=== PATIENT | female | born 1990 | race Hispanic/Latino ===

== ENCOUNTER 2018-02-16 11:07 | Emergency (ER) | payer SELFPAY ==
[2018-02-16 11:18] VITALS: BP 129/76; PULSE 97; RESP 18; TEMP 36.9; O2SAT 95; BMI 18.8
--- NOTE | 2018-02-16 12:55 | ED.EXTPRO ---
HPI - Extremity Problem <Gillian Martinez PA-C - Last Filed: 02/16/18 21:54> General Chief complaint: Extremity Problem,Nontraumatic Stated complaint: 'MESSED UP MY SHOULDER CAN'T FUNCTION' Time Seen by Provider: 02/16/18 12:50 Source: patient Mode of arrival: ambulatory Limitations: no limitations History of Present Illness HPI Narrative: This 27-year-old female comes in today due to persistent right shoulder pain for several months. She states ?I am in excruciating pain? tearfully, and states that she can't move due to the pain which will not go away. She states that she just woke up with this pain 1 day without any specific trauma. 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 She states the pain starts around the top of her shoulder and neck area and radiates at times down into her arm which she describes as ?shocky ?type of pain. She states that it does not affect her pinky finger, she does not know which other fingers. She thinks that it is pain that keeps her from activity rather than weakness. She initially denies any exacerbating or alleviating features but states that later it is worse with movement. She states that she has seen a chiropractor for this including yesterday, but she does not know what the diagnosis is. She was told that she might have herniated disc. She was treated yesterday states this did not help pain. She has tried lidocaine and heat patches at home without help. She has tried occasional ibuprofen without help. She states that the pain is giving her some headache. She denies any other chronic medical history. Denies any possibility of , has implant in her arm Related Data Home Medications Medication Instructions Recorded Confirmed ibuprofen 600 mg PO TID PRN 10/06/17 10/06/17 loratadine [Claritin] 10 mg PO DAILY 10/06/17 10/06/17 Previous Rx's Medication Instructions Recorded nitrofurantoin monohyd/m-cryst 100 mg PO BID #10 cap 07/01/17 [Macrobid] cyclobenzaprine 10 mg PO TID PRN #20 tab 02/16/18 ibuprofen 800 mg PO Q8H PRN #30 tab 02/16/18 Allergies Allergy/AdvReac Type Severity Reaction Status Date / Time naproxen [NAPROXEN] Allergy Severe SWELL UP Verified 02/16/18 11:24 SHORT OF BREATH, TORADOL TOLERATED IN PAST PER equipment mechanic of Systems <RAPHAEL Burnham Last Filed: 02/16/18 21:54> Review of Systems All systems reviewed & are unremarkable except as noted in HPI and below Exam <RAPHAEL Burnham Last Filed: 02/16/18 21:54> Narrative Exam Narrative: GENERAL APPEARANCE: Patient lying tearfully, holding her right upper extremity PULMONARY: Lungs clear to auscultation bilaterally CV: Regular rhythm regular without murmur, normal S1 and S2, no S3 or S4 MUSCULOSKELETAL: No point tenderness over the cervical or thoracic spine. Tender over the right inferior cervical musculature and superior trapezius insertions, none on the left. Will not attempt C-spine or right shoulder ROM secondary to tenderness, but does move the neck on observation. She has normal range of motion of the right elbow, wrist, and hand with plant production manager strength 5/5 bilaterally. Following medications on repeat exam she is able to externally rotate the shoulder fully and abduct to 90? NEUROVASCULAR: Right hand is warm and pink with brisk cap refill, sensation grossly intact Initial Vital Signs Initial Vital Signs: Vital Signs Temperature 98.4 F 02/16/18 11:18 Pulse Rate 97 H 02/16/18 11:18 Respiratory Rate 18 02/16/18 11:18 Blood Pressure 129/76 02/16/18 11:18 Pulse Oximetry 95 02/16/18 11:18 <Valeria Sanchez DO - Last Filed: 02/17/18 08:14> Initial Vital Signs Initial Vital Signs: Vital Signs Temperature 98.4 F 02/16/18 11:18 Pulse Rate 97 H 02/16/18 11:18 Respiratory Rate 18 02/16/18 11:18 Blood Pressure 129/76 02/16/18 11:18 Pulse Oximetry 95 02/16/18 11:18 Course <RAPHAEL Burnham Last Filed: 02/16/18 21:54> Additional Information: Patient is feeling significantly improved following medications. She feels like she will be able to sleep comfortably. She did reveal she has had some rotator cuff problems in the past. She does frequent lifting and repetitive motion at work. She is going to remain off work for this weekend as she was scheduled off the 1st part of next week anyway. Will try rest, medications, and follow up with her PCP to evaluate level of improvement and need for further workup or therapy Orders Ordered: Discontinued Medications Cyclobenzaprine HCl (Flexeril) 10 mg PO NOW ONE Stop: 02/16/18 13:10 Last Admin: 02/16/18 13:25 Dose: 10 mg Ibuprofen (Advil) 800 mg PO NOW ONE Stop: 02/16/18 13:10 Last Admin: 02/16/18 13:24 Dose: 800 mg Vital Signs - 8 hr 02/16/18 14:46 Pulse Rate 88 Blood Pressure [Left Arm] 120/71 Pulse Oximetry 97 <Valeria Sanchez DO - Last Filed: 02/17/18 08:14> Orders Ordered: Discontinued Medications Cyclobenzaprine HCl (Flexeril) 10 mg PO NOW ONE Stop: 02/16/18 13:10 Last Admin: 02/16/18 13:25 Dose: 10 mg Ibuprofen (Advil) 800 mg PO NOW ONE Stop: 02/16/18 13:10 Last Admin: 02/16/18 13:24 Dose: 800 mg Vital Signs - 8 hr 02/16/18 14:46 Pulse Rate 88 Blood Pressure [Left Arm] 120/71 Pulse Oximetry 97 MDM - Extremity (Nontraumatic) <Gillian Martinez PA-C - Last Filed: 02/16/18 21:54> Imaging Data shoulder: Radiologist's impression: View Report History [address] [address] XRay Report Signed Patient: Bethany Lopez MR#: [id number] : 1990 Acct:[id number] Age/Sex: 27 / F Date of Service: 02/16/18 Loc: ED Accession Number: [id number] Procedure: XR shoulder RT min 2V Ordering Provider: Gillian Martinez P.A-C PROCEDURE: XR SHOULDER RT MIN 2V INDICATIONS: pain TECHNIQUE: 3 views of the shoulder were acquired. COMPARISON: None. FINDINGS: Bones: No fractures or dislocations. No suspicious bony lesions. Visualized ribs appear intact. Soft tissues: No suspicious soft tissue calcifications. IMPRESSION: 1. No acute bony abnormality. Dictated by: Julio C Del Real M.D. on 02/16/2018 at 13:55 Approved by: Julio C Del Real M.D. on 02/16/2018 at 13:57 Discharge Plan Departure Patient Disposition: Home Clinical Impression: Right shoulder pain, Strain of cervical portion of right trapezius muscle Discharge Date/Time: 02/16/18 15:13 Interventions: ED Discharge Assessment Last Done: 02/16/18 15:09 Instructions: DI for Shoulder Pain Activity Restrictions/Additional Instructions: Since the medications have helped you today, you can continue them at home, but remember not to drive as it is clear that the muscle relaxant cyclobenzaprine makes you sleepy. This should help you at night. You can increase the dose to 2 tablets at nighttime if you need to. You should return if you have any acutely worsening symptoms. Otherwise, please call Dr. Crawley' office where you were seen previously and let them know that you were in the ED and need to follow up with another provider. Part of this could be a rotator cuff issue as you have had in the past. You do need to be reassessed and may need further testing depending upon your progress after you have had some time to rest and avoid repetitive stress on the area (please try to avoid repetitive lifting and activity with that arm). Return if you have acutely worsening symptoms in the interim. Prescriptions: New cyclobenzaprine 10 mg tablet 10 mg PO TID PRN (Reason: muscle spasm) Qty: 20 RF: 0 ibuprofen 800 mg tablet 800 mg PO Q8H PRN (Reason: pain) Qty: 30 RF: 0 No Action nitrofurantoin monohyd/m-cryst [Macrobid] 100 MG capsule 100 mg PO BID Qty: 10 RF: 0 ibuprofen 600 mg Tablet 600 mg PO TID PRN (Reason: Pain) RF: 0 loratadine [Claritin] 10 mg Tablet 10 mg PO DAILY RF: 0 Referrals: Ariana Crawley MD [Physician] - <Valeria Sanchez DO - Last Filed: 02/17/18 08:14> Cosign ED Attending Rasature Attestation: I was immediately available in the department for consultation. Documentation has been reviewed. I agree with assessment and plan.
--- NOTE | 2018-02-16 13:09 | DI.RAD.S_ITS ---
PROCEDURE: XR CERVICAL SPINE 2V OR 3V INDICATIONS: RIGHT radicular pain TECHNIQUE: 3 views of the cervical spine were acquired. COMPARISON: None. FINDINGS: Bones: No fractures or dislocations to the C7-T1 level. There is straightening of the cervical lordosis. The lateral masses of C1 appear intact on the odontoid view. No suspicious bony lesions. Soft tissues: No prevertebral soft tissue swelling. IMPRESSION: 1. No fracture or subluxation. Dictated by: Julio C Del Real M.D. on 02/16/2018 at 13:57 Approved by: Julio C Del Real M.D. on 02/16/2018 at 14:03
--- NOTE | 2018-02-16 13:09 | DI.RAD.S_ITS ---
PROCEDURE: XR SHOULDER RT MIN 2V INDICATIONS: pain TECHNIQUE: 3 views of the shoulder were acquired. COMPARISON: None. FINDINGS: Bones: No fractures or dislocations. No suspicious bony lesions. Visualized ribs appear intact. Soft tissues: No suspicious soft tissue calcifications. IMPRESSION: 1. No acute bony abnormality. Dictated by: Julio C Del Real M.D. on 02/16/2018 at 13:55 Approved by: Julio C Del Real M.D. on 02/16/2018 at 13:57
--- NOTE | 2018-02-16 13:19 | ED_ITS ---
HPI - Extremity Problem <Gillian Martinez PA-C - Last Filed: 02/16/18 21:54> General Chief complaint: Extremity Problem,Nontraumatic Stated complaint: 'MESSED UP MY SHOULDER CAN'T FUNCTION' Time Seen by Provider: 02/16/18 12:50 Source: patient Mode of arrival: ambulatory Limitations: no limitations History of Present Illness HPI Narrative: This 27-year-old female comes in today due to persistent right shoulder pain for several months. She states ?I am in excruciating pain? tearfully, and states that she can't move due to the pain which will not go away. She states that she just woke up with this pain 1 day without any specific trauma. 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 She states the pain starts around the top of her shoulder and neck area and radiates at times down into her arm which she describes as ?shocky ?type of pain. She states that it does not affect her pinky finger, she does not know which other fingers. She thinks that it is pain that keeps her from activity rather than weakness. She initially denies any exacerbating or alleviating features but states that later it is worse with movement. She states that she has seen a chiropractor for this including yesterday, but she does not know what the diagnosis is. She was told that she might have herniated disc. She was treated yesterday states this did not help pain. She has tried lidocaine and heat patches at home without help. She has tried occasional ibuprofen without help. She states that the pain is giving her some headache. She denies any other chronic medical history. Denies any possibility of , has implant in her arm Related Data Home Medications Medication Instructions Recorded Confirmed ibuprofen 600 mg PO TID PRN 10/06/17 10/06/17 loratadine [Claritin] 10 mg PO DAILY 10/06/17 10/06/17 Previous Rx's Medication Instructions Recorded nitrofurantoin monohyd/m-cryst 100 mg PO BID #10 cap 07/01/17 [Macrobid] cyclobenzaprine 10 mg PO TID PRN #20 tab 02/16/18 ibuprofen 800 mg PO Q8H PRN #30 tab 02/16/18 Allergies Allergy/AdvReac Type Severity Reaction Status Date / Time naproxen [NAPROXEN] Allergy Severe SWELL UP Verified 02/16/18 11:24 SHORT OF BREATH, TORADOL TOLERATED IN PAST PER history card clerk of Systems <RAPHAEL Burnham Last Filed: 02/16/18 21:54> Review of Systems All systems reviewed & are unremarkable except as noted in HPI and below Exam <RAPHAEL Burnham Last Filed: 02/16/18 21:54> Narrative Exam Narrative: GENERAL APPEARANCE: Patient lying tearfully, holding her right upper extremity PULMONARY: Lungs clear to auscultation bilaterally CV: Regular rhythm regular without murmur, normal S1 and S2, no S3 or S4 MUSCULOSKELETAL: No point tenderness over the cervical or thoracic spine. Tender over the right inferior cervical musculature and superior trapezius insertions, none on the left. Will not attempt C-spine or right shoulder ROM secondary to tenderness, but does move the neck on observation. She has normal range of motion of the right elbow, wrist, and hand with marking stitcher strength 5/ 5 bilaterally. Following medications on repeat exam she is able to externally rotate the shoulder fully and abduct to 90? NEUROVASCULAR: Right hand is warm and pink with brisk cap refill, sensation grossly intact Initial Vital Signs Initial Vital Signs: Vital Signs Temperature 98.4 F 02/16/18 11:18 Pulse Rate 97 H 02/16/18 11:18 Respiratory Rate 18 02/16/18 11:18 Blood Pressure 129/76 02/16/18 11:18 Pulse Oximetry 95 02/16/18 11:18 <Valeria Sanchez DO - Last Filed: 02/17/18 08:14> Initial Vital Signs Initial Vital Signs: Vital Signs Temperature 98.4 F 02/16/18 11:18 Pulse Rate 97 H 02/16/18 11:18 Respiratory Rate 18 02/16/18 11:18 Blood Pressure 129/76 02/16/18 11:18 Pulse Oximetry 95 02/16/18 11:18 Course <RAPHAEL Burnham Last Filed: 02/16/18 21:54> Additional Information: Patient is feeling significantly improved following medications. She feels like she will be able to sleep comfortably. She did reveal she has had some rotator cuff problems in the past. She does frequent lifting and repetitive motion at work. She is going to remain off work for this weekend as she was scheduled off the 1st part of next week anyway. Will try rest, medications, and follow up with her PCP to evaluate level of improvement and need for further workup or therapy Orders Ordered: Discontinued Medications Cyclobenzaprine HCl (Flexeril) 10 mg PO NOW ONE Stop: 02/16/18 13:10 Last Admin: 02/16/18 13:25 Dose: 10 mg Ibuprofen (Advil) 800 mg PO NOW ONE Stop: 02/16/18 13:10 Last Admin: 02/16/18 13:24 Dose: 800 mg Vital Signs - 8 hr 02/16/18 14:46 Pulse Rate 88 Blood Pressure [Left Arm] 120/71 Pulse Oximetry 97 <Valeria Sanchez DO - Last Filed: 02/17/18 08:14> Orders Ordered: Discontinued Medications Cyclobenzaprine HCl (Flexeril) 10 mg PO NOW ONE Stop: 02/16/18 13:10 Last Admin: 02/16/18 13:25 Dose: 10 mg Ibuprofen (Advil) 800 mg PO NOW ONE Stop: 02/16/18 13:10 Last Admin: 02/16/18 13:24 Dose: 800 mg Vital Signs - 8 hr 02/16/18 14:46 Pulse Rate 88 Blood Pressure [Left Arm] 120/71 Pulse Oximetry 97 MDM - Extremity (Nontraumatic) <Gillian Martinez PA-C - Last Filed: 02/16/18 21:54> Imaging Data shoulder: Radiologist's impression: View Report History [address] [address] XRay Report Signed Patient: Bethany Lopez MR#: [id number] : 1990 Acct:[id number] Age/Sex: 27 / F Date of Service: 02/16/18 Loc: ED Accession Number: [id number] Procedure: XR shoulder RT min 2V Ordering Provider: Gillian Martinez P.A-C PROCEDURE: XR SHOULDER RT MIN 2V INDICATIONS: pain TECHNIQUE: 3 views of the shoulder were acquired. COMPARISON: None. FINDINGS: Bones: No fractures or dislocations. No suspicious bony lesions. Visualized ribs appear intact. Soft tissues: No suspicious soft tissue calcifications. IMPRESSION: 1. No acute bony abnormality. Dictated by: Julio C Del Real M.D. on 02/16/2018 at 13:55 Approved by: Julio C Del Real M.D. on 02/16/2018 at 13:57 Discharge Plan Departure Patient Disposition: Home Clinical Impression: Right shoulder pain, Strain of cervical portion of right trapezius muscle Discharge Date/Time: 02/16/18 15:13 Interventions: ED Discharge Assessment Last Done: 02/16/18 15:09 Instructions: DI for Shoulder Pain Activity Restrictions/Additional Instructions: Since the medications have helped you today, you can continue them at home, but remember not to drive as it is clear that the muscle relaxant cyclobenzaprine makes you sleepy. This should help you at night. You can increase the dose to 2 tablets at nighttime if you need to. You should return if you have any acutely worsening symptoms. Otherwise, please call Dr. Crawley' office where you were seen previously and let them know that you were in the ED and need to follow up with another provider. Part of this could be a rotator cuff issue as you have had in the past. You do need to be reassessed and may need further testing depending upon your progress after you have had some time to rest and avoid repetitive stress on the area (please try to avoid repetitive lifting and activity with that arm). Return if you have acutely worsening symptoms in the interim. Prescriptions: New cyclobenzaprine 10 mg tablet 10 mg PO TID PRN (Reason: muscle spasm) Qty: 20 RF: 0 ibuprofen 800 mg tablet 800 mg PO Q8H PRN (Reason: pain) Qty: 30 RF: 0 No Action nitrofurantoin monohyd/m-cryst [Macrobid] 100 MG capsule 100 mg PO BID Qty: 10 RF: 0 ibuprofen 600 mg Tablet 600 mg PO TID PRN (Reason: Pain) RF: 0 loratadine [Claritin] 10 mg Tablet 10 mg PO DAILY RF: 0 Referrals: Ariana Crawley MD [Physician] - <Valeria Sanchez DO - Last Filed: 02/17/18 08:14> Cosign ED Attending Rasature Attestation: I was immediately available in the department for consultation. Documentation has been reviewed. I agree with assessment and plan.
[2018-02-16] MEDS: IBUPROFEN 400 MG TABLET 800 MG PO (13:24)
[2018-02-16] MEDS: CYCLOBENZAPRINE 10 MG TABLET PO (13:25)
[2018-02-16 14:46] VITALS: BP 120/71; PULSE 88; O2SAT 97
== END 2018-02-16 15:13 | disposition home or self-care (01) ==
PROVIDERS: Emergency Provider Internal Medicine
DX: M25.511 Pain in right shoulder (principal); S16.1XXA Strain of muscle, fascia and tendon at neck level, initial encounter
CPT/HCPCS: 72040; 73030; 99282; 99283

== ENCOUNTER 2019-01-12 00:33 | Emergency (ER) | payer OTHER, MEDICAID, SELFPAY ==
[2019-01-12 00:36] VITALS: BP 124/77; PULSE 88; RESP 20; TEMP 36.9; O2SAT 100; BMI 19.5
--- NOTE | 2019-01-12 00:58 | ED_ITS ---
HPI - Female Genitourinary General Chief complaint: Urogenital-Female Stated complaint: pain in back, both sides Time Seen by Provider: 01/12/19 00:50 Source: patient Mode of arrival: ambulatory Limitations: no limitations History of Present Illness HPI Narrative: Patient is a 28-year-old female. She states that she has dysuria and UTI like symptoms. States she has bilateral lower back pain. Has had nausea. Is not feeling very well. States the symptoms have been going on for some time. She states she has had symptoms like this in the past. The last time this happened she was given antibiotics and the symptoms went away but they came back fairly shortly afterwards. She states that she always ?fights through it ?and then comes in at the last minute. She does not have a primary provider. She has never seen a urologist. She states it was just recently when the last time she had symptoms like this. Related Data Home Medications Medication Instructions Recorded Confirmed ibuprofen 600 mg PO TID PRN 10/06/17 10/05/18 loratadine [Claritin] 10 mg PO DAILY 10/06/17 10/05/18 Previous Rx's Medication Instructions Recorded ibuprofen 800 mg PO Q8H PRN #30 tab 02/16/18 nitrofurantoin monohyd/m-cryst 100 mg PO BID #10 cap 01/12/19 [Macrobid] Allergies Allergy/AdvReac Type Severity Reaction Status Date / Time naproxen [NAPROXEN] Allergy Severe SWELL UP Verified 01/12/19 00:49 SHORT OF BREATH, TORADOL TOLERATED IN PAST PER financial representative of Systems Constitutional Reports fatigue and Reports fever(s) Gastrointestinal Gastrointestinal: Reports abdominal pain, Reports nausea and Denies vomiting Genitourinary Reports urinary frequency, Reports dysuria, Reports urinary hesitancy and Repor ts urinary urgency Musculoskeletal Reports back pain Integumentary/Breasts Denies rash Endocrine Reports fatigue Hematologic/Lymphatic Denies easy bleeding and Denies easy bruising [facility] Medical History Chronic back pain greater than 3 months duration (Chronic) Social History Smoking Status: Current every day smoker Social History Smoking Status: Current every day smoker Exam Initial Vital Signs Initial Vital Signs: Vital Signs Temperature 98.4 F 01/12/19 00:36 Pulse Rate 88 01/12/19 00:36 Respiratory Rate 20 01/12/19 00:36 Blood Pressure 124/77 01/12/19 00:36 Pulse Oximetry 100 01/12/19 00:36 Const General: cooperative, healthy appearing, comfortable, well developed, well groomed and No acute distress Orientation: alert, awake and oriented x3 Resp Effort & Inspection: normal respiratory effort Auscultation: clear to auscultation bilaterally Cardio Rate: regular rate Rhythm: regular rhythm GI Inspection: non-distended Palpation: soft and tender (Lower abdomen) Back/Spine/Pelvis Back: CVA tenderness Skin Lesions: no lesions Rashes: no rashes Neuro General: alert and awake Cognition: normal cognition Speech: speech normal Extrem General: normal to inspection and capillary refill normal Psych Appearance: grossly normal and well kempt Course Orders Ordered: ED Orders 01/12/19 01:45 Urine Culture Stat Vital Signs - 8 hr 01/12/19 00:36 01/12/19 01:50 Temperature 98.4 F Pulse Rate 88 85 Respiratory Rate 20 20 Blood Pressure 124/77 120/70 Pulse Oximetry 100 99 MDM - Female Genitourinary Lab Data Attestation: I reviewed the patient's lab results. Point of Care Testing Test Results Negative Urine Dip Bedside Urine Glucose Negative Bedside Urine Bilirubin - Negative Bedside Urine Ketone +/- 5 Urine Specific [place] 1.030 Bedside Urine Occult Blood +/- Bedside Urine pH 6.0 Bedside Urine Protein - Negative Bedside Urine Urobilinogen - Negative Bedside Urine Nitrite - Negative Bedside Urine Leukocytes - Negative Esterase [facility] Narrative Medical decision making narrative: Upon arrival patient was eating a hamburger from [employer]. Patient's urinalysis today is fairly unremarkable however she has symptoms of urinary tract infection. States the last time this happened she was given antibiotics and her symptoms resolved. Her urine was cultured. The given the fact she is having UTI like symptoms will treat with a short course of antibiotics. Will hold on treatment for pyelonephritis given the urinalysis result today. Given return precautions. She was also given information to help establish a primary provider. Informed her that she needed to obtain a primary provider. She expressed understanding and agreement with plan. Discharge Plan Departure Patient Disposition: Home Clinical Impression: Dysuria Lower back pain Qualifiers: Chronicity: unspecified Back pain laterality: unspecified Sciatica presence: without sciatica Qualified Code(s): M54.5 - Low back pain Discharge Date/Time: 01/12/19 01:50 Interventions: ED Discharge Assessment Last Done: 01/12/19 01:50 Instructions: DI for Dysuria -- Adult Activity Restrictions/Additional Instructions: Take the antibiotics as directed. Recommend you contact the health human resources district manager here at the hospital at [phone] to help establish a primary provider. Return to the emergency department for any new or worsening symptoms Prescriptions: New nitrofurantoin monohyd/m-cryst [Macrobid] 100 mg capsule 100 mg PO BID Qty: 10 RF: 0 No Action ibuprofen 600 mg Tablet 600 mg PO TID PRN (Reason: Pain) RF: 0 loratadine [Claritin] 10 mg Tablet 10 mg PO DAILY RF: 0 ibuprofen 800 mg tablet 800 mg PO Q8H PRN (Reason: pain) Qty: 30 RF: 0
[2019-01-12 01:50] VITALS: BP 120/70; PULSE 85; RESP 20; O2SAT 99
== END 2019-01-12 01:50 | disposition home or self-care (01) ==
PROVIDERS: Emergency Provider Emergency Medicine
DX: R30.0 Dysuria (principal); M54.5 Low back pain
CPT/HCPCS: 81003; 81025; 87077; 87086; 99282; 99283

== ENCOUNTER 2019-08-10 21:43 | Emergency (ER) | payer OTHER, MEDICAID, SELFPAY ==
[2019-08-10 21:46] VITALS: BP 108/62; PULSE 125; RESP 20; TEMP 36.9; O2SAT 98
[2019-08-10 22:22] LABS: Appearance Urine UA TURBID; Bilirubin Urine UA NEGATIVE (NEGATIVE); Color Urine UA YELLOW; Glucose Urine UA NEGATIVE (Negative); Ketones Urine UA TRACE (NEGATIVE); Leukocyte Esterase Urine UA 1+ (NEGATIVE); Nitrite Urine UA NEGATIVE (Negative); Occult Blood Urine UA 3+ (Negative); Protein Urine UA 2+ (Negative); Specific Gravity Urine UA >=1.030 (1.000-1.035); Urobilinogen Urine UA 0.2 E.U./dL (0.2)
[2019-08-10 22:33] LABS: Bacteria Urine Many (>30); Culture Indicated Urine Specimen Cultured; RBC Urine 30-100/HPF (0-5/HPF); Squamous Epithelial Cell Urine 0-1 /HPF (0-5/HPF); WBC Urine 30-100/HPF (0-5/HPF)
[2019-08-11 00:57] VITALS: PULSE 89; RESP 18; O2SAT 99
[2019-08-11] MEDS: HYDROCODONE/ACET 5/325 PREPACK 1 BOTTLE MISC (01:33)
[2019-08-11] MEDS: cephALEXin 250 MG PREPACK 1 BOTTLE MISC (01:33)
--- NOTE | 2019-08-11 07:42 | ED_ITS ---
HPI - Female Genitourinary General Chief complaint: Urogenital-Female Stated complaint: UTI Time Seen by Provider: 08/10/19 22:33 Source: patient Mode of arrival: Ambulatory Limitations: no limitations History of Present Illness HPI Narrative: 29-year-old female daily smoker presents with a chief complaint of a few days of dysuria, frequency and urgency and now some left-sided flank pain with the sensation of chills. She denies any fever. She denies any vaginal bleeding or discharge. She has had no constipation or diarrhea. She denies any chest pain, shortness of breath or cough. She has had no recent tra nellie or exposure to ill persons under suspicion for COVID-19 MD Complaint: dysuria and UTI Onset (ago): day(s) Location: LLQ Female Urogenital Radiation: L Flank Severity: moderate Quality: Aching Duration: constant Relieving factors: none Exacerbating factors: movement Urinary symptoms: Difficulty Urinating, Dysuria, Flank Pain, Foul Smelling Urine and Frequency Patient : No Related Data Home Medications Medication Instructions Recorded Confirmed ibuprofen 600 mg PO TID PRN 10/06/17 01/31/19 loratadine 10 mg tablet 10 mg PO DAILY PRN 01/31/19 01/31/19 Previous Rx's Medication Instructions Recorded norgestimate 0.25 mg-ethinyl 1 tab PO DAILY #28 tab 01/31/19 estradiol 35 mcg tablet cephalexin [Keflex] 500 mg PO QID 7 Days #28 cap 08/11/19 hydrocodone-acetaminophen 1 tab PO Q4-6H PRN #10 tab 08/11/19 ondansetron 4 mg PO TID-QID PRN #10 tab 08/11/19 Allergies Allergy/AdvReac Type Severity Reaction Status Date / Time naproxen [NAPROXEN] Allergy Severe SWELL UP Verified 01/31/19 16:07 SHORT OF BREATH, TORADOL TOLERATED IN PAST 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 of Systems Constitutional Constitutional: Reports chills, Denies fatigue, Reports fever(s), Denies frequent falls, Denies lethargy and Denies weakness Eyes Eyes: Denies change in vision, Denies eye discharge, Denies irritation and Denies loss of vision ENT Ears, Nose, Mouth, and Throat: Denies change in voice, Denies dizziness, Denies neck pain, Denies sore throat and Denies throat swelling Cardiovascular Cardiovascular: Denies chest pain, Denies irregular heart rhythm, Denies lightheadedness, Denies palpitations, Denies dyspnea, Denies dyspnea on exertion and Denies orthopnea Respiratory Respiratory: Denies cough, Denies dyspnea, Denies dyspnea on exertion and Denies wheezing Gastrointestinal Gastrointestinal: Denies abdominal pain, Denies change in bowel habits, Denies diarrhea, Denies nausea and Denies vomiting Genitourinary Genitourinary: Denies hematuria, Reports dysuria, Reports flank pain, Denies urinary incontinence and Reports urinary urgency Musculoskeletal Musculoskeletal: Denies back pain, Denies muscle weakness, Denies neck pain, Denies numbness and Denies tingling Integumentary/Breasts Skin/Breast: Denies pruritus, Denies erythema, Denies rash and Denies wounds Neurologic Neurologic: Denies behavioral changes, Denies confusion, Denies dizziness, Denies frequent falls, Denies loss of vision, Denies numbness, Denies tingling and Denies weakness Psychiatric Psychiatric: Denies anxiety, Denies behavioral changes, Denies confusion, Denies depression, Denies homicidal ideation and Denies suicidal ideation Endocrine Endocrine: Denies fatigue, Denies flushing and Denies palpitations Hematologic/Lymphatic Hematologic/Lymphatic: Denies easy bruising Allergic/Immunologic Allergic/Immunologic: Denies urticaria, Denies throat swelling and Denies wheezing Patient History Medical History Abnormal Pap smear of cervix (Resolved ~2012) Allergies (Chronic) Anemia (Chronic) Asthma (Chronic) Chronic back pain greater than 3 months duration (Chronic) Eczema (Chronic) Heavy menstrual period (Chronic) Hemorrhagic ovarian cyst (Inactive) Irregular menstrual cycle (Chronic) Migraines (Chronic) Painful menstrual periods (Chronic) Post traumatic stress disorder (PTSD) (Chronic) Restless leg syndrome (Chronic) Vertigo (Inactive ~2006) Family History Mother Mental health problem Brother Mental health problem Brother Hypertension Mental health problem Sister Mental health problem Grandmother Mental health problem alcohol intake frequency: a few times a month Substance Use Type: does not use Exam Narrative Exam Narrative: GENERAL: [29] year old patient appears stated age. Well- nourished, well-developed patient, in mild distress. HEAD: Atraumatic. Normocephalic. EYES: Pupils equal round and reactive. Extraocular motions intact. No scleral icterus. No injection or drainage. ENT: Nose without bleeding, purulent drainage. Throat without erythema, tonsillar hypertrophy or exudate. Airway patent. NECK: Trachea midline. Non tender CARDIOVASCULAR: Regular rate and rhythm without murmurs, gallops, or rubs. RESPIRATORY: Clear to auscultation. Breath sounds equal bilaterally. No wheezes, rales, or rhonchi. GASTROINTESTINAL: Abdomen soft, non-tender, nondistended. EXTREMITIES: No edema or joint tenderness. BACK: Left-sided CVA tenderness NEURO: AOx3. SKIN: No rash or erythema of visible areas Initial Vital Signs Initial Vital Signs: Vital Signs Temperature 98.5 F 08/10/19 21:46 Pulse Rate 125 H 08/10/19 21:46 Respiratory Rate 20 08/10/19 21:46 Blood Pressure 108/62 08/10/19 21:46 Pulse Oximetry 98 08/10/19 21:46 Course Orders Ordered: Discontinued Medications Hydrocodone Bitart/Acetaminophen (Vicodin 5/325 Prepack) 1 bottle MISC SEEINSTR ONE Stop: 08/11/19 01:02 Last Admin: 08/11/19 01:33 Dose: 1 bottle Documented by: ANTOINE Cefazolin Sodium (Keflex 250 Mg Prepack) 1 bottle MISC SEEINSTR ONE Stop: 08/11/19 01:01 Last Admin: 08/11/19 01:33 Dose: 1 bottle Documented by: ANTOINE Vital Signs Vital signs: Vital Signs - 8 hr 08/11/19 00:57 Pulse Rate 89 Respiratory Rate 18 Pulse Oximetry 99 MDM - Female Genitourinary Lab Data Labs: Lab Results 08/10/19 Range/Units 22:05 Urine Color Yellow Urine Appearance Turbid Urine pH 5.0 (4.5-8.0) Ur Specific [place] >=1.030 H (1.000-1.035) Urine Protein 2+ H (Negative) Urine Glucose (UA) Negative (Negative) g/dL Urine Ketones Trace H (NEGATIVE) Urine Occult Blood 3+ H (Negative) Urine Nitrate Negative (Negative) Urine Bilirubin Negative (NEGATIVE) Urine Urobilinogen 0.2 (0.2) E.U./dL Ur Leukocyte Esterase 1+ H (NEGATIVE) Urine RBC 30-100/hpf H (0-5/HPF) Urine WBC 30-100/hpf H (0-5/HPF) Ur Squamous Epith Cells 0-1 /hpf (0-5/HPF) Urine Bacteria Many (>30) H (None) Ur Culture Indicated? Specimen cultured Point of Care Testing Test Results Negative MDM Narrative Medical decision making narrative: Patient feeling much better after above- stated therapies. History and physical very consistent with pyelo nephritis. Urine fit this picture. After initial presentation and therapies her vitals have stabilized. It is very unlikely that any additional lab work or imaging would change our plan. Patient given return precautions and had questions answe red to her apparent satisfaction Discharge Plan Departure Patient Disposition: Home Clinical Impression: Pyelonephritis Discharge Date/Time: 08/11/19 01:37 Instructions: DI for Kidney Infection Activity Restrictions/Additional Instructions: *You have been diagnosed with [acute pyelonephritis] *What to do: *Take medications as directed: [facility] *Follow up with your primary care provider in 2-3 days, call for an appointment. Let them know you were seen in the Emergency Department and that we ask that you be seen in follow up *Return to ER if you should have any new, worsening or concerning symptoms Prescriptions: New hydrocodone-acetaminophen 5-325 mg tablet 1 tab PO Q4-6H PRN (Reason: pain) Qty: 10 RF: 0 cephalexin [Keflex] 500 mg capsule 500 mg PO QID 7 Days Qty: 28 RF: 0 ondansetron 4 mg tablet,disintegrating 4 mg PO TID-QID PRN (Reason: nausea and vomiting) Qty: 10 RF: 0 No Action norgestimate-ethinyl estradiol [Ortho-Cyclen (28)] 0.25-35 mg-mcg tablet 1 tab PO DAILY Qty: 28 RF: 0 ibuprofen 600 mg Tablet 600 mg PO TID PRN (Reason: Pain) RF: 0 loratadine [Claritin] 10 mg tablet 10 mg PO DAILY PRNRF: 0 Referrals: Oral Velasquez ARNP [Primary Care Provider] -
== END 2019-08-11 01:37 | disposition home or self-care (01) ==
PROVIDERS: Emergency Provider Emergency Medicine; PCP Nurse Practitioner Family
DX: N12 Tubulo-interstitial nephritis, not specified as acute or chronic (principal)
CPT/HCPCS: 81001; 81025; 87077; 87086; 87186; 99282; 99283

== ENCOUNTER 2019-09-21 18:36 | Emergency (ER) | payer OTHER, MEDICAID, SELFPAY ==
[2019-09-21 18:45] VITALS: BP 124/71; PULSE 101; RESP 14; TEMP 36.3; O2SAT 100; BMI 19.5
[2019-09-21] MEDS: ONDANSETRON 4 MG/2 ML INJ IV (19:38)
[2019-09-21] MEDS: SODIUM CHLORIDE 0.9% 1,000 ML 1000 ML IV (19:38)
[2019-09-21] MEDS: ACETAMINOPHEN 325 MG TABLET 650 MG PO (19:38)
[2019-09-21 19:42] LABS: Add Manual Diff / Slide Review NO; Basophils Absolute Auto 0 /uL (0-100); Basophils Percent Auto 0.2 % (0-2); Eosinophils Absolute Auto 0 /uL (0-450); Eosinophils Percent Auto 0.5 % (2-4); Hematocrit 41.6 % (36-46); Hemoglobin 14.1 g/dL (12.0-16.0); Lymphocytes Absolute Auto 1600 /uL (1100-4500); Lymphocytes Percent Auto 22.6 % (25-40); Mean Corpuscular HGB Conc 33.9 % (30-36); Mean Corpuscular Hemoglobin 30.2 PG (26-34); Mean Corpuscular Volume 89.1 fL (80-100); Monocytes Absolute Auto 700 /uL (0-900); Monocytes Percent Auto 9.5 % (3-14); Neutrophils Absolute Auto 4700 /uL (1500-7000); Neutrophils Percent Auto 67.2 % (50-75); Platelet Count 169 X10^3/uL (150-400); Red Blood Cell Count 4.67 X10^6/uL (4.0-5.2); Red Cell Distribution Width 12.4 % (11.6-14.8)
[2019-09-21 19:46] LABS: Bacteria Urine Many (>30); Culture Indicated Urine Specimen Cultured; Mucus Urine 2+ (Negative); RBC Urine 30-100/HPF (0-5/HPF); Squamous Epithelial Cell Urine 1-5 /HPF (0-5/HPF); Transitional Epi Cells Urine 10-30/HPF (0-5/HPF); WBC Urine >100/HPF (0-5/HPF)
[2019-09-21 19:54] LABS: Lactate (Lactic Acid) 1.2 mmol/L (0.7-2.1)
[2019-09-21 19:55] LABS: BUN Creatinine Ratio 14.8 (6-22); Blood Urea Nitrogen 12 mg/dL (7-17); Calcium 8.9 mg/dL (8.4-10.2); Carbon Dioxide 27 mmol/L (22-32); Chloride 102 mmol/L (98-107); Estimated Glomerular Filt Rate > 60.0 mL/min (>60); Glucose 89 mg/dL (70-100); HEMOLYSIS < 15 (0-50); Potassium 3.9 mmol/L (3.4-5.1); Sodium 137 mmol/L (137-145)
[2019-09-21 20:18] LABS: Procalcitonin < 0.05 ng/mL (<0.5)
[2019-09-21] MEDS: CEFTRIAXONE 1 GM/50 ML FROZ.PIGGY IV (20:33)
[2019-09-21] MEDS: MORPHINE 2 MG/ML INJ IV (20:34)
[2019-09-21] MEDS: TRAMADOL 50 MG PREPACK 1 BOTTLE MISC (21:37)
[2019-09-21] MEDS: ONDANSETRON 4 MG ODT PREPACK 1 BOTTLE MISC (21:37)
[2019-09-21 21:45] VITALS: BP 124/71; PULSE 95; RESP 18; O2SAT 99
--- NOTE | 2019-09-21 21:57 | ED_ITS ---
HPI - Female Genitourinary <ARETHA Norris - Last Filed: 09/21/19 22:38> General Chief complaint: Urogenital-Female Stated complaint: NAUSEA LOWER BACK PAIN BODY ACHES Time Seen by Provider: 09/21/19 18:43 Source: patient Mode of arrival: Ambulatory Limitations: no limitations History of Present Illness HPI Narrative: This is a 29-year-old female, smoker, presents to ED with nausea, bilateral flank pain worsen right-sided, bilateral upper and lateral abdominal discomfort and reports this has been going on for a long period and is unable to remember the onset of her symptoms and got used to it. However last 2 weeks she noticed urinary symptoms such urgency, dysuria, frequency with small amount of urination and cloudy urine. Patient states she was treated with amoxicillin for UTI about 2 weeks ago. Patient reports she has been feeling tired, has been sweating and freezing. Patient has nausea without vomiting. Patient has history of kidney infection and was hospitalized in the past to [facility] Emergency room and also the [facility]. Otherwise she denies chronic illnesses and is not currently taking any medications. 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 Respiratory: Denies dyspnea, cough, wheezing, hemoptysis, sputum. Cardiovascular: Denies chest pain, palpitations, orthopnea, edema. Gastrointestinal: Denies (+) nausea, vomiting, (+) bilateral upper abdominal pain, diarrhea, constipation, melena. : See HPI Musculoskeletal: Denies weakness, joint pain or bony pain, (+) bilateral flank pain worse in right side.. Skin: Denies rash, skin lesions, or other. Neurologic: Denies weakness, headache, numbness, change in speech, confusion, seizures, incoordination. Psychiatric: No concerning psychosocial issues. 12-point review of systems is negative except for those stated above. Patient History <ARETHA Norris - Last Filed: 09/21/19 22:38> Medical History Abnormal Pap smear of cervix (Resolved ~2012) Allergies (Chronic) Anemia (Chronic) Asthma (Chronic) Chronic back pain greater than 3 months duration (Chronic) Eczema (Chronic) Heavy menstrual period (Chronic) Hemorrhagic ovarian cyst (Inactive) Irregular menstrual cycle (Chronic) Kidney infection (Acute) Migraines (Chronic) Painful menstrual periods (Chronic) Post traumatic stress disorder (PTSD) (Chronic) Restless leg syndrome (Chronic) Vertigo (Inactive ~2006) Family History Mother Mental health problem Brother Mental health problem Brother Hypertension Mental health problem Sister Mental health problem Grandmother Mental health problem Smoking Status: Current every day smoker alcohol intake frequency: holidays/special occasions only Substance Use Type: does not use Exam <ARETHA Norris - Last Filed: 09/21/19 22:38> Narrative Exam Narrative: GEN: Alert, oriented x 3, well appearing and nourished, and in no acute distress. Head: Normal cephalic, atraumatic. No scalp or temporal tenderness, palpable mass or rash. EYES: Pupils are equal, round, and reactive to light and accommodation. Extraocular muscles are intact bilaterally. There is no subconjunctival hemorrhage, exudate and sclera non-icteric. ENT: Hearing grossly intact. Nose without bleeding, purulent discharge. Mucous membrane moist, no mucosal lesion. Throat without erythema, tonsillar hypertrophy or exudate. Uvula in midline, airway patent. Neck: Trachea in midline. No JVD, non-tender without lymphadenopathy. No masses or thyroid megaly. Supple, non-tender and no meningeal signs. CARDIAC: Normal regular rate and rhythm without murmurs, gallops, or rubs. No chest wall tenderness. No peripheral edema, cyanosis or pallor. Capillary refill is less than 2 seconds. RESPIRATORY: Lungs are clear to auscultate bilaterally. No cough, wheezes, rales, or rhonchi. No stridor, respiratory distress, increase work of breathing, or accessary muscle used. ABD: Abdomen soft and non-distended and tender to palpate in all quadrants. No guarding or rebound tenderness to palpate. Bowel sounds are normal in all 4 quadrants. There is no palpable masses or organomegaly. EXT: Full painless ROM of all extremities with no loss of sensation, strength, effusion or edema. SKIN: Warm, dry, normal color for patient. No erythema, lesions or rash over visible areas. BACK: Nontender without deformity or crepitance. Bilateral flank tenderness to percuss. NEUROLOGICAL: Alert and oriented to place, time and person. Sensation and motor function intact bilaterally. No facial droops, dysphasia. PSYCHIATRIC: Good judgement and reason, without hallucinations, abnormal affect or abnormal behaviors during the examination. Initial Vital Signs Initial Vital Signs: Vital Signs Temperature 97.4 F L 09/21/19 18:45 Pulse Rate 101 H 09/21/19 18:45 Respiratory Rate 14 09/21/19 18:45 Blood Pressure 124/71 09/21/19 18:45 Pulse Oximetry 100 09/21/19 18:45 <Curtis Maldonado DO - Last Filed: 09/21/19 23:22> Initial Vital Signs Initial Vital Signs: Vital Signs Temperature 97.4 F L 09/21/19 18:45 Pulse Rate 101 H 09/21/19 18:45 Respiratory Rate 14 09/21/19 18:45 Blood Pressure 124/71 09/21/19 18:45 Pulse Oximetry 100 09/21/19 18:45 Scores <ARETHA Norris - Last Filed: 09/21/19 22:38> GCS Danielle coma scale eye opening: Spontaneous Danielle coma scale verbal response: Orientated [place] coma scale motor response: Obey commands Danielle coma scale total score: 15 Course <ARETHA Norris - Last Filed: 09/21/19 22:38> Orders Ordered: ED Orders 09/21/19 19:00 Urine Culture Stat Urine Microscopic Stat 09/21/19 19:30 Basic Metabolic Panel Stat Blood Culture Stat Complete Blood Count AUTO DIFF Stat Lactate (Lactic Acid) Stat Procalcitonin Stat Discontinued Medications Acetaminophen (Tylenol) 650 mg PO NOW ONE Stop: 09/21/19 18:52 Last Admin: 09/21/19 19:38 Dose: 650 mg Documented by: ALBARON Sodium Chloride (Normal Saline 0.9%) 1,000 mls @ 1,000 mls/hr IV BOLUS ONE Stop: 09/21/19 19:49 Last Infusion: 09/21/19 20:30 Dose: 0 mls/hr Documented by: Admin: 09/21/19 19:38 Dose: 1,000 mls/hr Documented by: REINALDO Ceftriaxone Sodium/Dextrose (Rocephin) 1 gm in 50 mls @ 100 mls/hr IV NOW ONE Stop: 09/21/19 20:46 Last Infusion: 09/21/19 21:37 Dose: 0 mls/hr Documented by: Admin: 09/21/19 20:33 Dose: 100 mls/hr Documented by: REINALDO Morphine Sulfate (Morphine) 2 mg IV NOW ONE Stop: 09/21/19 20:22 Last Admin: 09/21/19 20:34 Dose: 2 mg Documented by: REINALDO Ondansetron HCl (Zofran) 4 mg IV NOW ONE Stop: 09/21/19 18:52 Last Admin: 09/21/19 19:38 Dose: 4 mg Documented by: REINALDO Ondansetron HCl (Zofran Odt Prepack) 1 bottle MISC SEEINSTR ONE Stop: 09/21/19 21:11 Last Admin: 09/21/19 21:37 Dose: 1 bottle Documented by: REINALDO Tramadol HCl (Ultram 50mg Prepack) 1 bottle MISC SEEINSTR ONE Stop: 09/21/19 21:11 Last Admin: 09/21/19 21:37 Dose: 1 bottle Documented by: REINALDO Vital Signs Vital signs: Vital Signs - 8 hr 09/21/19 18:45 09/21/19 21:45 Temperature 97.4 F L Pulse Rate 101 H 95 H Respiratory Rate 14 18 Blood Pressure 124/71 124/71 Pulse Oximetry 100 99 <Curtis Maldonado DO - Last Filed: 09/21/19 23:22> Orders Ordered: ED Orders 09/21/19 19:00 Urine Culture Stat Urine Microscopic Stat 09/21/19 19:30 Basic Metabolic Panel Stat Blood Culture Stat Complete Blood Count AUTO DIFF Stat Lactate (Lactic Acid) Stat Procalcitonin Stat Discontinued Medications Acetaminophen (Tylenol) 650 mg PO NOW ONE Stop: 09/21/19 18:52 Last Admin: 09/21/19 19:38 Dose: 650 mg Documented by: REINALDO Sodium Chloride (Normal Saline 0.9%) 1,000 mls @ 1,000 mls/hr IV BOLUS ONE Stop: 09/21/19 19:49 Last Infusion: 09/21/19 20:30 Dose: 0 mls/hr Documented by: Admin: 09/21/19 19:38 Dose: 1,000 mls/hr Documented by: REINALDO Ceftriaxone Sodium/Dextrose (Rocephin) 1 gm in 50 mls @ 100 mls/hr IV NOW ONE Stop: 09/21/19 20:46 Last Infusion: 09/21/19 21:37 Dose: 0 mls/hr Documented by: Admin: 09/21/19 20:33 Dose: 100 mls/hr Documented by: REINALDO Morphine Sulfate (Morphine) 2 mg IV NOW ONE Stop: 09/21/19 20:22 Last Admin: 09/21/19 20:34 Dose: 2 mg Documented by: REINALDO Ondansetron HCl (Zofran) 4 mg IV NOW ONE Stop: 09/21/19 18:52 Last Admin: 09/21/19 19:38 Dose: 4 mg Documented by: REINALDO Ondansetron HCl (Zofran Odt Prepack) 1 bottle MISC SEEINSTR ONE Stop: 09/21/19 21:11 Last Admin: 09/21/19 21:37 Dose: 1 bottle Documented by: REINALDO Tramadol HCl (Ultram 50mg Prepack) 1 bottle MISC SEEINSTR ONE Stop: 09/21/19 21:11 Last Admin: 09/21/19 21:37 Dose: 1 bottle Documented by: REINALDO Vital Signs Vital signs: Vital Signs - 8 hr 09/21/19 18:45 09/21/19 21:45 Temperature 97.4 F L Pulse Rate 101 H 95 H Respiratory Rate 14 18 Blood Pressure 124/71 124/71 Pulse Oximetry 100 99 MDM - Female Genitourinary <ARETHA Norris - Last Filed: 09/21/19 22:38> Differential Diagnosis Differential diagnosis: Likely urinary tract infection and other (Pyelonephritis) Medical Records Attestation: I reviewed the patient's medical records. Lab Data Attestation: I reviewed the patient's lab results. Result diagrams: 09/21/19 19:30 09/21/19 19:30 Labs: Lab Results 09/21/19 09/21/19 09/21/19 Range/Units 19:00 19:30 19:30 WBC 7.0 (4.5-11.0) X10^3/uL RBC 4.67 (4.0-5.2) X10^6/uL Hgb 14.1 (12.0-16.0) g/dL Hct 41.6 (36-46) % MCV 89.1 (80-100) fL MCH 30.2 (26-34) PG MCHC 33.9 (30-36) % RDW 12.4 (11.6-14.8) % Plt Count 169 (150-400) X10^3/uL Neut % (Auto) 67.2 (50-75) % Lymph % (Auto) 22.6 L (25-40) % Eagle % (Auto) 9.5 (3-14) % Eos % (Auto) 0.5 L (2-4) % Baso % (Auto) 0.2 (0-2) % Neut # (Auto) 4700 (8076-7588) /uL Lymph # (Auto) 1600 (1275-6885) /uL Eagle # (Auto) 700 (0-900) /uL Eos # (Auto) 0 (0-450) /uL Baso # (Auto) 0 (0-100) /uL Sodium (137-145) mmol/L Potassium (3.4-5.1) mmol/L Chloride (98-107) mmol/L Carbon Dioxide (22-32) mmol/L BUN (7-17) mg/dL Creatinine (0.52-1.04) mg/dL Estimated GFR (>60) mL/min BUN/Creatinine Ratio (6-22) Glucose (70-100) mg/dL Lactate (0.7-2.1) mmol/L Calcium (8.4-10.2) mg/dL Procalcitonin < 0.05 (<0.5) ng/mL Urine RBC 30-100/hpf H (0-5/HPF) Urine WBC >100/hpf H (0-5/HPF) Ur Squamous Epith Cells 1-5 /hpf (0-5/HPF) Ur Transition Epith Cell 10-30/hpf H (0-5/HPF) Urine Bacteria Many (>30) H (None) Urine Mucus 2+ H (Negative) Ur Culture Indicated? Specimen cultured 09/21/19 09/21/19 Range/Units 19:30 19:30 WBC (4.5-11.0) X10^3/uL RBC (4.0-5.2) X10^6/uL Hgb (12.0-16.0) g/dL Hct (36-46) % MCV (80-100) fL MCH (26-34) PG MCHC (30-36) % RDW (11.6-14.8) % Plt Count (150-400) X10^3/uL Neut % (Auto) (50-75) % Lymph % (Auto) (25-40) % Eagle % (Auto) (3-14) % Eos % (Auto) (2-4) % Baso % (Auto) (0-2) % Neut # (Auto) (7241-4470) /uL Lymph # (Auto) (3745-1501) /uL Eagle # (Auto) (0-900) /uL Eos # (Auto) (0-450) /uL Baso # (Auto) (0-100) /uL Sodium 137 (137-145) mmol/L Potassium 3.9 (3.4-5.1) mmol/L Chloride 102 (98-107) mmol/L Carbon Dioxide 27 (22-32) mmol/L BUN 12 (7-17) mg/dL Creatinine 0.81 (0.52-1.04) mg/dL Estimated GFR > 60.0 (>60) mL/min BUN/Creatinine Ratio 14.8 (6-22) Glucose 89 (70-100) mg/dL Lactate 1.2 (0.7-2.1) mmol/L Calcium 8.9 (8.4-10.2) mg/dL Procalcitonin (<0.5) ng/mL Urine RBC (0-5/HPF) Urine WBC (0-5/HPF) Ur Squamous Epith Cells (0-5/HPF) Ur Transition Epith Cell (0-5/HPF) Urine Bacteria (None) Urine Mucus (Negative) Ur Culture Indicated? Point of Care Testing Test Results Negative Urine Dip Bedside Urine Glucose Negative Bedside Urine Bilirubin - Negative Bedside Urine Ketone - Negative Urine Specific [place] 1.025 Bedside Urine Occult Blood ++ Bedside Urine pH 6.0 Bedside Urine Protein + 30 Bedside Urine Urobilinogen - Negative Bedside Urine Nitrite + Positive Bedside Urine Leukocytes +++ 500 Esterase MDM Narrative Medical decision making narrative: This is a 29 year female who has history of frequent UTI and kidney infection who presents to ED with bilateral flank and bilateral upper abdominal pain with nausea, subjective fever and chills. Patient reports her symptoms been going on for months with worsening last couple of weeks with urinary symptoms such as urgency, frequency, cloudy urine. Patient is afebrile in ED with tachycardia greater than 100. Patient had bilateral flank tenderness to percuss and bilateral upper abdominal discomfort palpate. Urine test was negative for and urine test is consistent w ith UTI and occult hematuria. Urine cultures pending. Patient was medicated with IV fluid and Zofran for her symptoms. Her discomfort initially was treated with Tylenol orally and patient has known medication allergy to Naprosyn family. She was given 2 mg of morphine IV which alleviated discomfort. No significant leukocytosis. Chemistry tests were unremarkable. Lactate and procalcitonin is were within normal limits. Patient was medicated with IV Rocephin prior discharged to home for complicated UTI/pyelonephritis. Culture culture from previous visit in 08/10/19 shows E coli with ESBL positive and susceptible for Augmentin, nitrofurantoin. Patient discharged to home with prepack toward our, Zofran, Rx for nitrofurantoin b.i.d. course for 7 days. After patient received Rocephin, it was noted it has resistance to ceftriaxone her patient's previous urine culture with the E -coli. Return precautions were discussed with patient and patient verbalized understanding in agreement with treatment plan. Patient's heart rate has improved to 90s before discharged to home and she was able to tolerate fluids and crackers. <Curtis Maldonado, DO - Last Filed: 09/21/19 23:22> Lab Data Labs: Lab Results 09/21/19 09/21/19 09/21/19 Range/Units 19:00 19:30 19:30 WBC 7.0 (4.5-11.0) X10^3/uL RBC 4.67 (4.0-5.2) X10^6/uL Hgb 14.1 (12.0-16.0) g/dL Hct 41.6 (36-46) % MCV 89.1 (80-100) fL MCH 30.2 (26-34) PG MCHC 33.9 (30-36) % RDW 12.4 (11.6-14.8) % Plt Count 169 (150-400) X10^3/uL Neut % (Auto) 67.2 (50-75) % Lymph % (Auto) 22.6 L (25-40) % [place] % (Auto) 9.5 (3-14) % Eos % (Auto) 0.5 L (2-4) % Baso % (Auto) 0.2 (0-2) % Neut # (Auto) 4700 (1905-0264) /uL Lymph # (Auto) 1600 (8742-1164) /uL [place] # (Auto) 700 (0-900) /uL Eos # (Auto) 0 (0-450) /uL Baso # (Auto) 0 (0-100) /uL Sodium (137-145) mmol/L Potassium (3.4-5.1) mmol/L Chloride (98-107) mmol/L Carbon Dioxide (22-32) mmol/L BUN (7-17) mg/dL Creatinine (0.52-1.04) mg/dL Estimated GFR (>60) mL/min BUN/Creatinine Ratio (6-22) Glucose (70-100) mg/dL Lactate (0.7-2.1) mmol/L Calcium (8.4-10.2) mg/dL Procalcitonin < 0.05 (<0.5) ng/mL Urine RBC 30-100/hpf H (0-5/HPF) Urine WBC >100/hpf H (0-5/HPF) Ur Squamous Epith Cells 1-5 /hpf (0-5/HPF) Ur Transition Epith Cell 10-30/hpf H (0-5/HPF) Urine Bacteria Many (>30) H (None) Urine Mucus 2+ H (Negative) Ur Culture Indicated? Specimen cultured 09/21/19 09/21/19 Range/Units 19:30 19:30 WBC (4.5-11.0) X10^3/uL RBC (4.0-5.2) X10^6/uL Hgb (12.0-16.0) g/dL Hct (36-46) % MCV (80-100) fL MCH (26-34) PG MCHC (30-36) % RDW (11.6-14.8) % Plt Count (150-400) X10^3/uL Neut % (Auto) (50-75) % Lymph % (Auto) (25-40) % [place] % (Auto) (3-14) % Eos % (Auto) (2-4) % Baso % (Auto) (0-2) % Neut # (Auto) (9313-4077) /uL Lymph # (Auto) (6535-9417) /uL [place] # (Auto) (0-900) /uL Eos # (Auto) (0-450) /uL Baso # (Auto) (0-100) /uL Sodium 137 (137-145) mmol/L Potassium 3.9 (3.4-5.1) mmol/L Chloride 102 (98-107) mmol/L Carbon Dioxide 27 (22-32) mmol/L BUN 12 (7-17) mg/dL Creatinine 0.81 (0.52-1.04) mg/dL Estimated GFR > 60.0 (>60) mL/min BUN/Creatinine Ratio 14.8 (6-22) Glucose 89 (70-100) mg/dL Lactate 1.2 (0.7-2.1) mmol/L Calcium 8.9 (8.4-10.2) mg/dL Procalcitonin (<0.5) ng/mL Urine RBC (0-5/HPF) Urine WBC (0-5/HPF) Ur Squamous Epith Cells (0-5/HPF) Ur Transition Epith Cell (0-5/HPF) Urine Bacteria (None) Urine Mucus (Negative) Ur Culture Indicated? Point of Care Testing Test Results Negative Urine Dip Bedside Urine Glucose Negative Bedside Urine Bilirubin - Negative Bedside Urine Ketone - Negative Urine Specific [place] 1.025 Bedside Urine Occult Blood ++ Bedside Urine pH 6.0 Bedside Urine Protein + 30 Bedside Urine Urobilinogen - Negative Bedside Urine Nitrite + Positive Bedside Urine Leukocytes +++ 500 Esterase Discharge Plan Departure Patient Disposition: Home Clinical Impression: Pyelonephritis Discharge Date/Time: 09/21/19 21:46 Instructions: DI for Kidney Infection Activity Restrictions/Additional Instructions: You have been diagnosed with [UTI/pyelonephritis. Urine test indicates infection. Negative test for . Urine is pending for culture and you will receive a phone call if you need different antibiotic medication. You were treated with IV fluid, Zofran, morphine, and IV Rocephin to treat infection.]. What to do: *Take your medications as directed. Please start taking nitrofurantoin from tomorrow morning twice a day for next 7 days. Nitrofurantoin has been transmitted to [facility]. You can take Zofran that has been dispense to you for nausea as needed. You can take [id number] Tylenol for discomfort. Tylenol 650-1000 mg 3 to 4 times a day as needed. If you have severe pain and please take tramadol that has been dispensed to use as needed. This medication can cause drowsiness so please do not drive, drink alcohol or operate heavy equipments. This can cause constipation so please precautions. *Follow up with your primary care provider in 2-3 days, call for an appointment. Let them know you were seen in the ED and that we asked you to be seen in follow up. *Return to ED if you have any new, worsening, or concerning symptoms, such as [chest pain, breathing difficulty, unable to tolerate fluids, high fever, severe pain or any acute concerns]. Referrals: Oral Velasquez ARNP [Primary Care Provider] - <Curtis Maldonado DO - Last Filed: 09/21/19 23:22> [facility] Att[facility]: I was immediately available in the department for consultation. This documentation has been reviewed and I agree with assessment and plan. Supervised by Curtis Maldonado DO
== END 2019-09-21 21:46 | disposition home or self-care (01) ==
PROVIDERS: Emergency Provider Nurse Practitioner Family; PCP Nurse Practitioner Family
DX: N12 Tubulo-interstitial nephritis, not specified as acute or chronic (principal); R11.0 Nausea
CPT/HCPCS: 36415; 80048; 81003; 81015; 81025; 83605; 84145; 85025; 87040; 87077; 87086; 87186; 96361; 96365; 96375; 99284; J2270; J2405

== ENCOUNTER 2020-01-31 00:01 | Emergency (ER) | payer OTHER, MEDICAID, SELFPAY ==
[2020-01-31 00:10] VITALS: BP 118/77; PULSE 110; RESP 19; TEMP 36.9; O2SAT 100; BMI 18.8
--- NOTE | 2020-01-31 00:27 | ED_ITS ---
HPI - Back Pain/Injury General Chief Complaint: Back Pain/Injury Stated Complaint: right side pain Time Seen by Provider: 01/31/20 00:14 Source: patient and family Limitations: no limitations History of Present Illness HPI Narrative: Patient here with . Awoke yesterday afternoon with right infrascapular pain. Non reproducible. Other than hurts to breathe. Patient is on control. Denies any previous history of blood clots in legs or lungs. No chest pain. No fever chills. No urinary complaints. Patient denies any inj ury or stress on the back Related Data Previous Rx's Medication Instructions Recorded cyclobenzaprine 10 mg PO TID #15 tab 01/31/20 Allergies Allergy/AdvReac Type Severity Reaction Status Date / Time naproxen [NAPROXEN] Allergy Severe SWELL UP Verified 09/21/19 18:48 SHORT OF BREATH, TORADOL TOLERATED IN PAST PER overedger of Systems Review of Systems Narrative: GENERAL: Denies chills, fatigue, malaise, fever, sweats. HEENT: Denies sinus pain, ear pain, sore throat, difficulty swallowing, dizziness. RESPIRATORY: Denies dyspnea, cough, wheezing, hemoptysis, sputum. CARDIOVASCULAR: Denies chest pain, palpitations, orthopnea, edema, GASTROINTESTINAL: Denies nausea, vomiting, abdominal pain, diarrhea, constipation, melena. : Denies dysuria, frequency, incontinence, hematuria, urinary retention. MUSCULOSKELETAL: denies weakness, joint pain, or bony pain SKIN: Denies rash, skin lesions, or other NEUROLOGIC: Denies weakness, headache, numbness, change in speech, confusion, seizures, incoordination. PSYCHIATRIC: No concerning psychosocial issues. ROS Unobtainable: All systems reviewed & are unremarkable except as noted in HPI and below Patient History Medical History Abnormal Pap smear of cervix (Resolved ~2012) Allergies (Chronic) Anemia (Chronic) Asthma (Chronic) Chronic back pain greater than 3 months duration (Chronic) Eczema (Chronic) Heavy menstrual period (Chronic) Hemorrhagic ovarian cyst (Inactive) Irregular menstrual cycle (Chronic) Kidney infection (Acute) Migraines (Chronic) Painful menstrual periods (Chronic) Post traumatic stress disorder (PTSD) (Chronic) Restless leg syndrome (Chronic) Vertigo (Inactive ~2006) Family History Mother Mental health problem Brother Mental health problem Brother Hypertension Mental health problem Sister Mental health problem Grandmother Mental health problem Social History Smoking Status: Current every day smoker Tobacco: How many years used: 20 quit status: considering quitting (Patient given smoking cessation handout ) second hand exposure: Yes (work) alcohol intake: current (1-2 beers every other day) substance use type: does not use Smoking Status: Current every day smoker alcohol intake frequency: 0-2 drinks per day Substance Use Type: does not use Exam Narrative Exam Narrative: GENERAL: patient appears stated age. Well-nourished, well- developed patient, in no distress, not toxic HEAD: Atraumatic. Normocephalic. EYES: Pupils equal round and reactive. Extraocular motions intact. No scleral icterus. No injection or drainage. ENT: Nose without bleeding, purulent drainage. Throat without erythema, tonsillar hypertrophy or exudate. Airway patent. NECK: Trachea midline. Non tender CARDIOVASCULAR: Regular rate and rhythm without murmurs, gallops, or rubs. RESPIRATORY: Clear to auscultation. Breath sounds equal bilaterally. No wheezes, rales, or rhonchi. GASTROINTESTINAL: Abdomen soft, non-tender, nondistended. EXTREMITIES: No edema or joint tenderness. BACK: Nontender without deformity or crepitance. No flank tenderness. No CVA tenderness no rash. Patient states initially feels better when pushing into the right lower ribs posteriorly NEURO: AOx3. SKIN: No rash or erythema of visible areas PSYCH: Not anxious, is cooperative Initial Vital Signs Initial Vital Signs: Vital Signs Temperature 98.5 F 01/31/20 00:10 Pulse Rate 110 H 01/31/20 00:10 Respiratory Rate 19 01/31/20 00:10 Blood Pressure 118/77 01/31/20 00:10 Pulse Oximetry 100 01/31/20 00:10 Course Orders Ordered: ED Orders 01/31/20 00:28 CT angio chest PE protocol Stat 01/31/20 00:33 Complete Blood Count AUTO DIFF Stat Comprehensive Metabolic Panel Stat Test Serum,Qual Stat 01/31/20 02:26 Urinalysis and Microscopic Stat Urine Drug Screen, Rapid Stat Discontinued Medications Sodium Chloride (Normal Saline 0.9%) 1,000 mls @ 1,000 mls/hr IV BOLUS ONE Stop: 01/31/20 01:27 Last Infusion: 01/31/20 02:25 Dose: 0 mls/hr Documented by: Admin: 01/31/20 00:49 Dose: 1,000 mls/hr Documented by: BROOK[place]N Morphine Sulfate (Morphine) 4 mg IV NOW ONE Stop: 01/31/20 00:29 Last Admin: 01/31/20 00:48 Dose: 4 mg Documented by: BROOK[place]N Ondansetron HCl (Zofran) 4 mg IV NOW ONE Stop: 01/31/20 00:29 Last Admin: 01/31/20 00:48 Dose: 4 mg Documented by: BROOK[place]N Reevaluation(s) Reevaluation #1: resting comfortably and laying on right side Time: 03:11 Vital Signs Vital signs: Vital Signs - 8 hr 01/31/20 00:10 01/31/20 01:15 01/31/20 01:30 Temperature 98.5 F Pulse Rate 110 H 96 H 82 Respiratory Rate 19 Blood Pressure 118/77 Pulse Oximetry 100 84 L 100 01/31/20 02:00 01/31/20 03:21 01/31/20 03:22 Temperature Pulse Rate 78 94 H Respiratory Rate Blood Pressure 102/55 L Pulse Oximetry 100 84 L 100 MDM - Back Pain/Injury Differential Diagnosis Differential diagnosis: Likely other ([place]leur isy/costochondritis/pyelonephritis/pulmonary embolism) Lab Data Attestation: I reviewed the patient's lab results. Result diagrams: 01/31/20 00:33 01/31/20 00:33 Labs: Lab Results 01/31/20 01/31/20 01/31/20 Range/Units 00:33 00:33 00:33 WBC 6.2 (4.5-11.0) X10^3/uL RBC 4.22 (4.0-5.2) X10^6/uL Hgb 12.8 (12.0-16.0) g/dL Hct 37.8 (36-46) % MCV 89.6 (80-100) fL MCH 30.4 (26-34) PG MCHC 33.9 (30-36) % RDW 12.7 (11.6-14.8) % Plt Count 203 (150-400) X10^3/uL Neut % (Auto) 53.7 (50-75) % Lymph % (Auto) 33.9 (25-40) % [place] % (Auto) 9.2 (3-14) % Eos % (Auto) 2.7 (2-4) % Baso % (Auto) 0.5 (0-2) % Neut # (Auto) 3300 (3716-3861) /uL Lymph # (Auto) 2100 (5763-3926) /uL [place] # (Auto) 600 (0-900) /uL Eos # (Auto) 200 (0-450) /uL Baso # (Auto) 0 (0-100) /uL Sodium 137 (137-145) mmol/L Potassium 4.0 (3.4-5.1) mmol/L Chloride 104 (98-107) mmol/L Carbon Dioxide 26 (22-32) mmol/L BUN 15 (7-17) mg/dL Creatinine 0.71 (0.52-1.04) mg/dL Estimated GFR > 60.0 (>60) mL/min BUN/Creatinine Ratio 21.1 (6-22) Glucose 113 H (70-100) mg/dL Calcium 8.9 (8.4-10.2) mg/dL Total Bilirubin 0.4 (0.2-1.3) mg/dL AST 23 (14-36) IU/L ALT 15 (<35) IU/L Alkaline Phosphatase 46 (38-126) U/L Total Protein 7.1 (6.3-8.2) g/dL Albumin 4.0 (3.5-5.0) g/dL Globulin 3.1 (1.7-4.1) g/dL Albumin/Globulin Ratio 1.3 (1.0-2.8) Serum , Qual Negative (Negative) Urine Color Urine Appearance Urine pH (4.5-8.0) Ur Specific [place] (1.000-1.035) Urine Protein (Negative) Urine Glucose (UA) (Negative) g/dL Urine Ketones (NEGATIVE) Urine Occult Blood (Negative) Urine Nitrate (Negative) Urine Bilirubin (NEGATIVE) Urine Urobilinogen (0.2) E.U./dL Ur Leukocyte Esterase (NEGATIVE) Urine RBC (0-5/HPF) Urine WBC (0-5/HPF) Ur Squamous Epith Cells (0-5/HPF) Urine Bacteria (None) Ur Culture Indicated? Micro UA Comment U Opiates 300ng/mL cut (Negative) Ur Oxycodone Screen (Negative) Urine Methadone Screen (Negative) Ur Barbiturates Screen (Negative) U Tricyclic Antidepress (Negative) Ur Phencyclidine Scrn (Negative) Ur Amphetamines Screen (Negative) U Methamphetamines Scrn (Negative) Ur MDMA Scrn (Ecstasy) (Negative) U Benzodiazepines Scrn (Negative) Urine Cocaine Screen (Negative) U Marijuana (THC) Screen (Negative) 01/31/20 01/31/20 Range/Units 02:26 02:26 WBC (4.5-11.0) X10^3/uL RBC (4.0-5.2) X10^6/uL Hgb (12.0-16.0) g/dL Hct (36-46) % MCV (80-100) fL MCH (26-34) PG MCHC (30-36) % RDW (11.6-14.8) % Plt Count (150-400) X10^3/uL Neut % (Auto) (50-75) % Lymph % (Auto) (25-40) % [place] % (Auto) (3-14) % Eos % (Auto) (2-4) % Baso % (Auto) (0-2) % Neut # (Auto) (7824-3206) /uL Lymph # (Auto) (8588-0022) /uL [place] # (Auto) (0-900) /uL Eos # (Auto) (0-450) /uL Baso # (Auto) (0-100) /uL Sodium (137-145) mmol/L Potassium (3.4-5.1) mmol/L Chloride (98-107) mmol/L Carbon Dioxide (22-32) mmol/L BUN (7-17) mg/dL Creatinine (0.52-1.04) mg/dL Estimated GFR (>60) mL/min BUN/Creatinine Ratio (6-22) Glucose (70-100) mg/dL Calcium (8.4-10.2) mg/dL Total Bilirubin (0.2-1.3) mg/dL AST (14-36) IU/L ALT (<35) IU/L Alkaline Phosphatase (38-126) U/L Total Protein (6.3-8.2) g/dL Albumin (3.5-5.0) g/dL Globulin (1.7-4.1) g/dL Albumin/Globulin Ratio (1.0-2.8) Serum , Qual (Negative) Urine Color Straw Urine Appearance Clear Urine pH 7.0 (4.5-8.0) Ur Specific [place] <=1.005 (1.000-1.035) Urine Protein Negative (Negative) Urine Glucose (UA) Negative (Negative) g/dL Urine Ketones Negative (NEGATIVE) Urine Occult Blood Negative (Negative) Urine Nitrate Negative (Negative) Urine Bilirubin Negative (NEGATIVE) Urine Urobilinogen 0.2 (0.2) E.U./dL Ur Leukocyte Esterase Negative (NEGATIVE) Urine RBC None seen (0-5/HPF) Urine WBC None seen (0-5/HPF) Ur Squamous Epith Cells 0-1 /hpf (0-5/HPF) Urine Bacteria None seen (None) Ur Culture Indicated? Cult not indicated Micro UA Comment Microscopic normal U Opiates 300ng/mL cut Positive H (Negative) Ur Oxycodone Screen Negative (Negative) Urine Methadone Screen Negative (Negative) Ur Barbiturates Screen Negative (Negative) U Tricyclic Antidepress Negative (Negative) Ur Phencyclidine Scrn Negative (Negative) Ur Amphetamines Screen Positive H (Negative) U Methamphetamines Scrn Positive H (Negative) Ur MDMA Scrn (Ecstasy) Negative (Negative) U Benzodiazepines Scrn Negative (Negative) Urine Cocaine Screen Negative (Negative) U Marijuana (THC) Screen Negative (Negative) Imaging Data CT scan - chest: Radiologist's Impression: No pulmonary embolism no acute process. No acute findings in the visualized upper abdomen MDM Narrative Medical decision making narrative: Patient movement causes pain. Presents clinically like muscle strain. Will prescribe muscle relaxer/baclofen Discharge Plan Departure Patient Disposition: Home Clinical Impression: Acute back pain Qualifiers: Back pain location: thoracic back pain Back pain laterality: right Qualified Code(s): M54.6 - Pain in thoracic spine Discharge Date/Time: 01/31/20 03:26 Instructions: DI for Thoracic Back Pain Activity Restrictions/Additional Instructions: No driving this morning. See family doctor within a week for recheck. Return if worse or if any questions or concerns. Prescriptions: New cyclobenzaprine 10 mg tablet 10 mg PO TID Qty: 15 RF: 0 Referrals: Oral Velasquez ARNP [Primary Care Provider] -
--- NOTE | 2020-01-31 00:28 | DI.CT.S_ITS ---
PROCEDURE: CT ANGIO CHEST PE PROTOCOL INDICATIONS: Chest pain/dyspnea TECHNIQUE: After the administration of intravenous contrast, 2 mm thick sections acquired from the pulmonary apices to the posterior costophrenic angles. 3-dimensional maximum intensity projection (MIP) coronal and sagittal reformats were then acquired through the thorax. For radiation dose reduction, the following was used: automated exposure control, adjustment of mA and/or kV according to patient size. COMPARISON: None. FINDINGS: Image quality: Excellent. Pulmonary arteries: Pulmonary arteries are normal in size, and demonstrate no intraluminal filling defects to suggest central pulmonary embolism. Lungs and pleura: Lungs are clear. Note is made of a 3 x 4 mm small nodule posterolateral left lung base series 5, image 154. No pleural effusions or pneumothorax. Central and peripheral airways are patent. Mediastinum: Heart size is normal, without pericardial effusion. No mediastinal or hilar adenopathy by size criteria but there is an increased number of small nodes several of which appear confluent. Thoracic aorta is normal in caliber and enhancement. Esophagus is normal in caliber, without hiatal hernia. Bones and chest wall: No suspicious bony lesions. Ribs and thoracic spine appear intact throughout. Thyroid gland appears normal where well seen. No axillary or supraclavicular adenopathy. Abdomen: Visualized upper abdominal solid organs appear normal in the early arterial phase of enhancement. IMPRESSION: No pulmonary embolus. Incidental note made of a 3 x 4 mm left posterolateral small pulmonary nodule which by Fleischner society criteria in a low risk patient does not require follow-up imaging. Note is made of an increased number of small nodes at the mediastinum and each hilum, a nonspecific appearance. If clinically indicated a follow-up CT could be obtained in 3-6 months to assess for stability over time. Note: These findings are concordant with the preliminary interpretation. Dictated by: Dom Gray M.D. on 01/31/2020 at 6:52 Approved by: Dom Gray M.D. on 01/31/2020 at 6:55
[2020-01-31 00:41] LABS: Add Manual Diff / Slide Review NO; Basophils Absolute Auto 0 /uL (0-100); Basophils Percent Auto 0.5 % (0-2); Eosinophils Absolute Auto 200 /uL (0-450); Eosinophils Percent Auto 2.7 % (2-4); Hematocrit 37.8 % (36-46); Hemoglobin 12.8 g/dL (12.0-16.0); Lymphocytes Absolute Auto 2100 /uL (1100-4500); Lymphocytes Percent Auto 33.9 % (25-40); Mean Corpuscular HGB Conc 33.9 % (30-36); Mean Corpuscular Hemoglobin 30.4 PG (26-34); Mean Corpuscular Volume 89.6 fL (80-100); Monocytes Absolute Auto 600 /uL (0-900); Monocytes Percent Auto 9.2 % (3-14); Neutrophils Absolute Auto 3300 /uL (1500-7000); Neutrophils Percent Auto 53.7 % (50-75); Platelet Count 203 X10^3/uL (150-400); Red Blood Cell Count 4.22 X10^6/uL (4.0-5.2); Red Cell Distribution Width 12.7 % (11.6-14.8); White Blood Cell Count 6.2 X10^3/uL (4.5-11.0)
[2020-01-31] MEDS: ONDANSETRON 4 MG/2 ML INJ IV (00:48)
[2020-01-31] MEDS: MORPHINE 4 MG/ML INJ IV (00:48)
[2020-01-31] MEDS: SODIUM CHLORIDE 0.9% 1,000 ML 1000 ML IV (00:49)
[2020-01-31 00:51] LABS: Alanine Aminotransferase 15 IU/L (<35); Albumin Globulin Ratio 1.3 (1.0-2.8); Alkaline Phosphatase 46 U/L (38-126); Aspartate Aminotransferase 23 IU/L (14-36); BUN Creatinine Ratio 21.1 (6-22); Bilirubin Total 0.4 mg/dL (0.2-1.3); Blood Urea Nitrogen 15 mg/dL (7-17); Calcium 8.9 mg/dL (8.4-10.2); Carbon Dioxide 26 mmol/L (22-32); Chloride 104 mmol/L (98-107); Estimated Glomerular Filt Rate > 60.0 mL/min (>60); Globulin 3.1 g/dL (1.7-4.1); Glucose 113 mg/dL (70-100); HEMOLYSIS < 15 (0-50); Sodium 137 mmol/L (137-145); Total Protein 7.1 g/dL (6.3-8.2)
[2020-01-31 00:55] LABS: Pregnancy Test Serum,Qual Negative (Negative)
[2020-01-31 01:15] VITALS: PULSE 96; O2SAT 84
[2020-01-31 01:30] VITALS: PULSE 82; O2SAT 100
[2020-01-31 02:00] VITALS: PULSE 78; O2SAT 100
[2020-01-31 02:27] LABS: Bacteria Urine None Seen; RBC Urine None Seen (0-5/HPF); WBC Urine None Seen (0-5/HPF)
[2020-01-31 02:29] LABS: Appearance Urine UA CLEAR; Bilirubin Urine UA NEGATIVE (NEGATIVE); Color Urine UA Straw; Glucose Urine UA NEGATIVE (Negative); Ketones Urine UA NEGATIVE (NEGATIVE); Leukocyte Esterase Urine UA NEGATIVE (NEGATIVE); Nitrite Urine UA NEGATIVE (Negative); Occult Blood Urine UA NEGATIVE (Negative); Protein Urine UA NEGATIVE (Negative); Specific Gravity Urine UA <=1.005 (1.000-1.035); Urobilinogen Urine UA 0.2 E.U./dL (0.2)
[2020-01-31 02:38] LABS: Culture Indicated Urine Cult Not Indicated; Squamous Epithelial Cell Urine 0-1 /HPF (0-5/HPF); UR Morphine/Opiate cutoff 300 Positive (Negative); Ur Creatinine Normal (Normal); Ur Specific Gravity Normal (Normal); Urine Amphetamines Positive (Negative); Urine Cocaine Negative (Negative); Urine Comments Microscopic Normal; Urine Tetrahydrocannabinol Negative (Negative); Urine pH Normal (Normal)
[2020-01-31 02:39] LABS: Urine Barbiturates Negative (Negative); Urine Benzodiazepines Negative (Negative); Urine MDMA Negative (Negative); Urine Methadone Negative (Negative); Urine Methamphetamines Positive (Negative); Urine Oxycodone Negative (Negative); Urine Phencyclidine Negative (Negative); Urine Tricyclic Antidepressant Negative (Negative)
[2020-01-31 03:21] VITALS: O2SAT 84
[2020-01-31 03:22] VITALS: BP 102/55; PULSE 94; O2SAT 100
== END 2020-01-31 03:26 | disposition home or self-care (01) ==
PROVIDERS: Emergency Provider Emergency Medicine; PCP Nurse Practitioner Family
DX: M54.6 Pain in thoracic spine (principal)
CPT/HCPCS: 36415; 71275; 80053; 80305; 81001; 84703; 85025; 96361; 96374; 96375; 99284; J2270; J2405; Q9967

== ENCOUNTER → 2020-06-27 10:17 | Outpatient (CLI) | payer OTHER, MEDICAID, SELFPAY ==
[2020-06-27 12:09] LABS: RBC Urine None Seen (0-5/HPF)
[2020-06-27 12:12] LABS: Bilirubin Urine UA NEGATIVE (NEGATIVE); Color Urine UA YELLOW; Glucose Urine UA NEGATIVE (Negative); Ketones Urine UA NEGATIVE (NEGATIVE); Leukocyte Esterase Urine UA TRACE (NEGATIVE); Nitrite Urine UA NEGATIVE (Negative); Occult Blood Urine UA TRACE-LYSED (Negative); Protein Urine UA NEGATIVE (Negative); Specific Gravity Urine UA >=1.030 (1.000-1.035); Urobilinogen Urine UA 0.2 E.U./dL (0.2)
[2020-06-27 12:13] LABS: pH Urine UA 5.5 (4.5-8.0)
[2020-06-27 12:20] LABS: Appearance Urine UA SL CLOUDY; Squamous Epithelial Cell Urine 10-30 /HPF (0-5/HPF); WBC Urine 5-10/HPF (0-5/HPF)
[2020-06-27 12:21] LABS: Bacteria Urine Many (>30); Culture Indicated Urine Cult Not Indicated
[2020-06-28 08:17] LABS: RPR Screen Non Reactive (Non Reactive)
[2020-06-28 08:36] LABS: HSV 2 IGG AB < 0.91 index (0.00-0.90)
[2020-06-29 05:17] LABS: Hepatitis B Surface Antigen NEGATIVE s/c (NEGATIVE)
[2020-06-29 05:35] LABS: HIV 1 & 2 Ab/Ag 4th Gen Combo NEGATIVE (NEGATIVE); Hep C Virus Ab w/Reflex Quant NEGATIVE s/c (NEGATIVE)
== END ==
PROVIDERS: PCP Nurse Practitioner Family; Referring Provider Nurse Practitioner Family; Visit Provider Nurse Practitioner Family
DX: M54.5 Low back pain (principal); R35.0 Frequency of micturition; N89.8 Other specified noninflammatory disorders of vagina; Z20.2 Contact with and (suspected) exposure to infections with a predominantly sexual mode of transmission
CPT/HCPCS: 36415; 81001; 86592; 86695; 86696; 86803; 87210; 87340; 87389

== ENCOUNTER → 2021-02-25 10:48 | Outpatient (CLI) | payer OTHER, MEDICAID, SELFPAY ==
[2021-02-25 13:17] LABS: COVID19 -Nasal RAPID Negative (Negative)
== END ==
PROVIDERS: PCP Nurse Practitioner Family; Visit Provider Physician Assistant
DX: Z20.822 Contact with and (suspected) exposure to COVID-19 (principal); R05 Cough; R09.89 Other specified symptoms and signs involving the circulatory and respiratory systems
CPT/HCPCS: 87635

== ENCOUNTER 2021-11-15 00:14 | Emergency (ER) | payer OTHER, MEDICAID, SELFPAY ==
[2021-11-15] VITALS (10 sets, daily range): BP systolic 110–120; BP diastolic 63–83; PULSE 80–108; RESP 16; TEMP 36.6; O2SAT 98–100; BMI 20.1
[2021-11-15 00:59] LABS: Add Manual Diff / Slide Review NO; Basophils Absolute Auto 100 /uL (0-100); Basophils Percent Auto 0.9 % (0-2); Eosinophils Absolute Auto 200 /uL (0-450); Eosinophils Percent Auto 2.9 % (2-4); Hematocrit 39.4 % (36-46); Hemoglobin 13.4 g/dL (12.0-16.0); Lymphocytes Absolute Auto 2200 /uL (1100-4500); Lymphocytes Percent Auto 32.4 % (25-40); Mean Corpuscular HGB Conc 34.1 % (30-36); Mean Corpuscular Hemoglobin 29.4 PG (26-34); Mean Corpuscular Volume 86.4 fL (80-100); Monocytes Absolute Auto 700 /uL (0-900); Monocytes Percent Auto 9.8 % (3-14); Neutrophils Absolute Auto 3700 /uL (1500-7000); Platelet Count 251 X10^3/uL (150-400); Red Blood Cell Count 4.56 X10^6/uL (4.0-5.2); Red Cell Distribution Width 12.6 % (11.6-14.8); White Blood Cell Count 6.8 X10^3/uL (4.5-11.0)
[2021-11-15 01:04] LABS: Alanine Aminotransferase 19 IU/L (<35); Albumin 4.2 g/dL (3.5-5.0); Albumin Globulin Ratio 1.2 (1.0-2.8); Alkaline Phosphatase 50 U/L (38-126); Aspartate Aminotransferase 33 IU/L (14-36); BUN Creatinine Ratio 21.5 (6-22); Bilirubin Total 0.5 mg/dL (0.2-1.3); Blood Urea Nitrogen 17 mg/dL (7-17); Calcium 8.5 mg/dL (8.4-10.2); Carbon Dioxide 27 mmol/L (22-32); Chloride 104 mmol/L (98-107); Estimated Glomerular Filt Rate > 60 mL/min (>60); Globulin 3.4 g/dL (1.7-4.1); Glucose 95 mg/dL (70-100); HEMOLYSIS 20 (0-50); Lipase 113 U/L (23-300); Sodium 138 mmol/L (137-145); Total Protein 7.6 g/dL (6.3-8.2)
[2021-11-15 01:20] LABS: Appearance Urine UA CLEAR; Bilirubin Urine UA NEGATIVE (NEGATIVE); Color Urine UA YELLOW; Glucose Urine UA NEGATIVE (Negative); Ketones Urine UA NEGATIVE (NEGATIVE); Leukocyte Esterase Urine UA NEGATIVE (NEGATIVE); Nitrite Urine UA NEGATIVE (Negative); Occult Blood Urine UA NEGATIVE (Negative); Protein Urine UA NEGATIVE (Negative); Specific Gravity Urine UA 1.025 (1.000-1.035); Urobilinogen Urine UA 0.2 E.U./dL (0.2)
[2021-11-15 01:21] LABS: RBC Urine None Seen (0-5/HPF); Squamous Epithelial Cell Urine 5-10 /HPF (0-5/HPF); WBC Urine None Seen (0-5/HPF)
[2021-11-15 01:22] LABS: Bacteria Urine Few (2-10); Culture Indicated Urine Cult Not Indicated; Mucus Urine 2+ (Negative)
--- NOTE | 2021-11-15 01:48 | ED.GENADULT ---
HPI - General Adult General Chief complaint: Abdominal Pain Stated complaint: abd pain/headache x1 day Time Seen by Provider: 11/15/21 01:48 Source: patient Mode of arrival: Ambulatory History of Present Illness HPI narrative: 31-year-old woman with history of chronic migraine and multiple allergies to anti medics as well as Naprosyn presents with 2 weeks of headache, nausea, body aches, myalgias, dizziness, feeling hot but not actually measuring a temperature. She states that she has chronic asthma still continues to smoke has a minor cough that has not changed. She has not been having vomiting or diarrhea but has not had much of an appetite. Her primary reason for coming in today is because the headache has gotten progressively worse but she is worried that symptoms have continued for the last 2 weeks. She is not vaccinated against COVID. She also notes that she has chronic headaches. The headaches have been a lifelong problem for her typically daily she knows a number of her triggers and does try to avoid them. She tries to minimize bodo-zld-gjbwtuq medications typically has problems around the 1st couple of days of her menstrual cycle (despite having a subdermal implant). She has never used triptans and has never been on any preventive medications. She is open to trying any or all of these. Related Data Home Medications Medication Instructions Recorded Confirmed cyclobenzaprine 10 mg tablet 10 mg PO TID PRN 06/27/20 etonogestrel 68 mg subdermal subdermal 06/27/20 06/27/20 implant (Nexplanon) Previous Rx's Medication Instructions Recorded amitriptyline 25 mg tablet 25 mg PO BEDTIME #30 tabs 11/15/21 Allergies Allergy/AdvReac Type Severity Reaction Status Date / Time naproxen [NAPROXEN] Allergy Severe SWELL UP Verified 11/15/21 00:20 SHORT OF BREATH, TORADOL TOLERATED IN PAST PER editor sound of Systems Review of Systems Narrative: Remainder of complete review of systems is otherwise unremarkable except for that included in the HPI. Patient History Medical History Abnormal Pap smear of cervix (~2012) Allergies Anemia Asthma Bacterial vaginitis Chronic back pain greater than 3 months duration Eczema Encounter for routine gynecological examination (06/27/20) Heavy menstrual period Hemorrhagic ovarian cyst (~06/27/20) Irregular menstrual cycle Kidney infection Migraines Painful menstrual periods Possible exposure to STD Post traumatic stress disorder (PTSD) Restless leg syndrome Vertigo (~2006) Family History Mother Mental health problem Brother Mental health problem Brother Hypertension Mental health problem Sister Mental health problem Grandmother Mental health problem Social History Smoking Status: Current every day smoker Tobacco: How many years used: 20 quit status: considering quitting (Patient given smoking cessation handout ) second hand exposure: Yes (work) alcohol intake: current (1-2 beers every other day) substance use type: does not use Smoking Status: Current every day smoker alcohol intake frequency: a few times a week Substance Use Type: does not use Exam Initial Vital Signs Initial Vital Signs: Vital Signs Pulse Rate 108 H 11/15/21 00:19 Blood Pressure 120/83 11/15/21 00:19 Pulse Oximetry 99 11/15/21 00:19 General: Fatigued appearing but in no acute distress. Able to give a complete and coherent history. Well-nourished well-developed HEENT: Moist mucous membranes, normal sclera with reactive pupils, Neck: No cervical adenopathy Respiratory: Lungs are clear to auscultation, no wheezing no rales no rhonchi. Full and symmetrical air movement Cardiac: Regular rate and rhythm no murmurs no bruits Abdomen: Soft, nontender, good bowel tones, no flank pain Skin: Warm and dry, no rashes Neurologic: Grossly neurologically intact with no obvious asymmetries or abnormalities Extremities: No trauma, well perfused Psych: Cooperative, appropriate insight and affect Course Orders Ordered: ED Orders 11/15/21 00:45 Complete Blood Count AUTO DIFF Stat Comprehensive Metabolic Panel Stat Lipase Stat Urinalysis and Microscopic Stat 11/15/21 02:33 Respiratory Panel (Film Array) Stat Discontinued Medications Sodium Chloride (Normal Saline 0.9%) 1,000 mls @ 1,000 mls/hr IV BOLUS ONE Stop: 11/15/21 02:53 Last Admin: 11/15/21 02:24 Dose: 1,000 mls/hr Documented By: NR Ketorolac Tromethamine (Ketorolac 30 Mg/Ml Vial) 15 mg IV NOW ONE Stop: 11/15/21 01:55 Ondansetron HCl (Ondansetron 4 Mg/2 Ml Inj) 4 mg IV NOW ONE Stop: 11/15/21 01:55 Vital Signs Vital signs: Vital Signs - 8 hr 11/15/21 00:20 11/15/21 00:19 11/15/21 00:19 Temperature 97.9 F Pulse Rate 98 H 108 H Respiratory Rate 16 Blood Pressure 120/83 120/83 Pulse Oximetry 100 99 Oxygen Delivery Method Room Air 11/15/21 00:30 11/15/21 00:30 11/15/21 01:00 Temperature Pulse Rate 100 H 86 Respiratory Rate Blood Pressure 110/69 Pulse Oximetry 100 100 Oxygen Delivery Method 11/15/21 01:30 11/15/21 02:00 11/15/21 02:30 Temperature Pulse Rate 80 89 99 H Respiratory Rate Blood Pressure Pulse Oximetry 100 99 99 Oxygen Delivery Method 11/15/21 03:00 11/15/21 03:45 Temperature Pulse Rate 88 Respiratory Rate Blood Pressure 116/70 Pulse Oximetry 99 Oxygen Delivery Method Medical Decision Making Lab Data Result diagrams: 11/15/21 00:45 11/15/21 00:45 Labs: Lab Results 11/15/21 11/15/21 11/15/21 Range/Units 00:45 00:45 00:45 WBC 6.8 (4.5-11.0) X10^3/uL RBC 4.56 (4.0-5.2) X10^6/uL Hgb 13.4 (12.0-16.0) g/dL Hct 39.4 (36-46) % MCV 86.4 (80-100) fL MCH 29.4 (26-34) PG MCHC 34.1 (30-36) % RDW 12.6 (11.6-14.8) % Plt Count 251 (150-400) X10^3/uL Neut % (Auto) 54.0 (50-75) % Lymph % (Auto) 32.4 (25-40) % [place] % (Auto) 9.8 (3-14) % Eos % (Auto) 2.9 (2-4) % Baso % (Auto) 0.9 (0-2) % Neut # (Auto) 3700 (9469-0517) /uL Lymph # (Auto) 2200 (7604-7390) /uL [place] # (Auto) 700 (0-900) /uL Eos # (Auto) 200 (0-450) /uL Baso # (Auto) 100 (0-100) /uL Sodium 138 (137-145) mmol/L Potassium 4.0 (3.4-5.1) mmol/L Chloride 104 (98-107) mmol/L Carbon Dioxide 27 (22-32) mmol/L BUN 17 (7-17) mg/dL Creatinine 0.79 (0.52-1.04) mg/dL Estimated GFR > 60 (>60) mL/min BUN/Creatinine Ratio 21.5 (6-22) Glucose 95 (70-100) mg/dL Calcium 8.5 (8.4-10.2) mg/dL Total Bilirubin 0.5 (0.2-1.3) mg/dL AST 33 (14-36) IU/L ALT 19 (<35) IU/L Alkaline Phosphatase 50 (38-126) U/L Total Protein 7.6 (6.3-8.2) g/dL Albumin 4.2 (3.5-5.0) g/dL Globulin 3.4 (1.7-4.1) g/dL Albumin/Globulin Ratio 1.2 (1.0-2.8) Lipase 113 (23-300) U/L Urine Color Yellow Urine Appearance Clear Urine pH 6.0 (4.5-8.0) Ur Specific [place] 1.025 (1.000-1.035) Urine Protein Negative (Negative) Urine Glucose (UA) Negative (Negative) g/dL Urine Ketones Negative (NEGATIVE) Urine Occult Blood Negative (Negative) Urine Nitrate Negative (Negative) Urine Bilirubin Negative (NEGATIVE) Urine Urobilinogen 0.2 (0.2) E.U./dL Ur Leukocyte Esterase Negative (NEGATIVE) Urine RBC None seen (0-5/HPF) Urine WBC None seen (0-5/HPF) Ur Squamous Epith Cells 5-10 /hpf H (0-5/HPF) Urine Bacteria Few (2-10) H (None) Urine Mucus 2+ H (Negative) Ur Culture Indicated? Cult not indicated Chlamy pneumoniae PCR (Not Detect) Adenovirus (PCR) (Not Detect) B. pertussis DNA (PCR) (Not Detecte) B.parapertussis DNA PCR (Not Detecte) Coronavirus OC43 (PCR) (Not Detect) Coronavirus HKU1 (PCR) (Not Detect) Coronavirus 229E (PCR) (Not Detect) SARS-CoV-2 (PCR) (Not Detecte) Coronavirus NL63 (PCR) (Not Detect) Human Metapneumovir PCR (Not Detect) Influenza Type A (PCR) (Not Detect) Influenza Type B (PCR) (Not Detect) M. pneumoniae (PCR) (Not Detect) Parainfluenza 1 (PCR) (Not Detect) Parainfluenza 2 (PCR) (Not Detect) Parainfluenza 3 (PCR) (Not Detect) Parainfluenza 4 (PCR) (Not Detect) RSV (PCR) (Not Detect) Entero/Rhino (PCR) (Not Detect) 11/15/21 Range/Units 02:33 WBC (4.5-11.0) X10^3/uL RBC (4.0-5.2) X10^6/uL Hgb (12.0-16.0) g/dL Hct (36-46) % MCV (80-100) fL MCH (26-34) PG MCHC (30-36) % RDW (11.6-14.8) % Plt Count (150-400) X10^3/uL Neut % (Auto) (50-75) % Lymph % (Auto) (25-40) % [place] % (Auto) (3-14) % Eos % (Auto) (2-4) % Baso % (Auto) (0-2) % Neut # (Auto) (3101-1073) /uL Lymph # (Auto) (2632-1103) /uL [place] # (Auto) (0-900) /uL Eos # (Auto) (0-450) /uL Baso # (Auto) (0-100) /uL Sodium (137-145) mmol/L Potassium (3.4-5.1) mmol/L Chloride (98-107) mmol/L Carbon Dioxide (22-32) mmol/L BUN (7-17) mg/dL Creatinine (0.52-1.04) mg/dL Estimated GFR (>60) mL/min BUN/Creatinine Ratio (6-22) Glucose (70-100) mg/dL Calcium (8.4-10.2) mg/dL Total Bilirubin (0.2-1.3) mg/dL AST (14-36) IU/L ALT (<35) IU/L Alkaline Phosphatase (38-126) U/L Total Protein (6.3-8.2) g/dL Albumin (3.5-5.0) g/dL Globulin (1.7-4.1) g/dL Albumin/Globulin Ratio (1.0-2.8) Lipase (23-300) U/L Urine Color Urine Appearance Urine pH (4.5-8.0) Ur Specific [place] (1.000-1.035) Urine Protein (Negative) Urine Glucose (UA) (Negative) g/dL Urine Ketones (NEGATIVE) Urine Occult Blood (Negative) Urine Nitrate (Negative) Urine Bilirubin (NEGATIVE) Urine Urobilinogen (0.2) E.U./dL Ur Leukocyte Esterase (NEGATIVE) Urine RBC (0-5/HPF) Urine WBC (0-5/HPF) Ur Squamous Epith Cells (0-5/HPF) Urine Bacteria (None) Urine Mucus (Negative) Ur Culture Indicated? Chlamy pneumoniae PCR Not detected (Not Detect) Adenovirus (PCR) Not detected (Not Detect) B. pertussis DNA (PCR) Not detected (Not Detecte) B.parapertussis DNA PCR Not detected (Not Detecte) Coronavirus OC43 (PCR) Not detected (Not Detect) Coronavirus HKU1 (PCR) Not detected (Not Detect) Coronavirus 229E (PCR) Not detected (Not Detect) SARS-CoV-2 (PCR) Not detected (Not Detecte) Coronavirus NL63 (PCR) Not detected (Not Detect) Human Metapneumovir PCR Not detected (Not Detect) Influenza Type A (PCR) Not detected (Not Detect) Influenza Type B (PCR) Not detected (Not Detect) M. pneumoniae (PCR) Not detected (Not Detect) Parainfluenza 1 (PCR) Not detected (Not Detect) Parainfluenza 2 (PCR) Not detected (Not Detect) Parainfluenza 3 (PCR) Not detected (Not Detect) Parainfluenza 4 (PCR) Not detected (Not Detect) RSV (PCR) Not detected (Not Detect) Entero/Rhino (PCR) Not detected (Not Detect) MDM Narrative Medical decision making narrative: 31-year-old woman with 2 weeks of fatigue, general myalgias and worsening chronic headache. Lab work is unremarkable including respiratory panel. No COVID or influenza. She feels significantly better after L of fluid. She declined both Zofran and Toradol. She is safe for home discharge. We discussed treatment for her chronic headaches and she is interested in trying a daily prophylactic medication. As she is currently reestablishing with a new provider in the same clinic where her previous provider has recently left. I encouraged her to follow up to discuss chronic daily headache and appropriate treatments and consultation with Neurology as needed. Will also suggest that she talk with a physical therapist who specializes in osteopathic techniques and craniosacral work to see if that might be of benefit for her as well. To that end we will start her on 25 mg of amitriptyline. Side effects, alternatives benefits and risks are clearly reviewed with her. With her current frequency in basically chronic daily headaches I do not think she is going to be an appropriate Triptan candidate until the frequency is decreased. Will ask her to review that with her primary care doctor as she reestablishes. Discharge Plan Departure Patient Disposition: Home Clinical Impression: Acute viral syndrome, Chronic daily headache Migraine Qualifiers: Migraine type: unspecified Status migrainosus presence: without status migrainosus Intractability: not intractable Qualified Code(s): G43.909 - Migraine, unspecified, not intractable, without status migrainosus Instructions: DI for Migraine Activity Restrictions/Additional Instructions: Thank you for coming in today Your blood work was reassuring. There is no obvious bacterial infection, electrolyte abnormalities, kidney or liver dysfunction. We did do a respiratory viral panel that was negative including COVID and influenza. Your symptoms are very much viral related and as they have been present for 2 weeks I would expect that you will begin improving over the next couple of days. Regarding your chronic daily headaches and migraine, who going to suggest that you begin amitriptyline 25 mg. It is best if you take it 2-3 hours before you want to fall asleep so that you do not wake up too groggy. It will give you a dry mouth and it typically takes 2-3 weeks to appreciate the full benefit. The Less ayov-snf-stvduko pain medication you are able to take during this period, the more effective it can be. Often times the blzo-jtl-fhklrso medications, even the they seemed to help slightly, are actually contributing to the chronic headache. This prescription was electronically transmitted to [facility] in [place] Finally, I would recommend finding a physical therapist that can be helpful with manual treatments specifically headache. Consider trying Jacky Rodríguez, physical therapist, [place]. His address is [address] [place] [address], [address] His phone number is [phone] Please schedule an appointment with your primary care physician to follow-up on all of these issues. If you find that you are getting worse or develop any new symptoms, please feel free to return to the emergency department for further evaluation. Prescriptions: New amitriptyline 25 mg tablet 25 mg PO BEDTIME Qty: 30 3RF No Action Nexplanon 68 mg implant subdermal cyclobenzaprine 10 mg tablet 10 mg PO TID PRN
[2021-11-15] MEDS: SODIUM CHLORIDE 0.9% 1,000 ML 1000 ML IV (02:24)
[2021-11-15 03:36] LABS: Adenovirus Not Detected (Not Detect); B. parapertussis Not Detected (Not Detecte); Bordetella pertussis Not Detected (Not Detecte); Chlamydophila pneumoniae Not Detected (Not Detect); Coronavirus 229E Not Detected (Not Detect); Coronavirus HKU1 Not Detected (Not Detect); Coronavirus NL 63 Not Detected (Not Detect); Coronavirus OC43 Not Detected (Not Detect); Human Metapneumovirus Not Detected (Not Detect); Human Rhinovirus/Enterovirus Not Detected (Not Detect); Influenza A Not Detected (Not Detect); Influenza B Not Detected (Not Detect); Mycoplasma pneumoniae Not Detected (Not Detect); Parainfluenza Virus 1 Not Detected (Not Detect); Parainfluenza Virus 2 Not Detected (Not Detect); Parainfluenza Virus 3 Not Detected (Not Detect); Parainfluenza Virus 4 Not Detected (Not Detect); Respiratory Syncytial Virus Not Detected (Not Detect); SARS- CoV-2 Not Detected (Not Detecte)
== END 2021-11-15 05:37 | disposition home or self-care (01) ==
PROVIDERS: Emergency Provider Emergency Medicine
DX: B34.9 Viral infection, unspecified (principal); G43.909 Migraine, unspecified, not intractable, without status migrainosus; Z20.822 Contact with and (suspected) exposure to COVID-19
CPT/HCPCS: 80053; 81001; 83690; 85025; 87633; 99283

== ENCOUNTER → 2023-03-03 18:48 | Outpatient (CLI) | payer OTHER, MEDICAID, SELFPAY ==
[2023-03-03 20:36] LABS: Urine N gonorrhoeae NOT DETECTED
[2023-03-03 20:40] LABS: Urine Chlamydia NOT DETECTED
== END ==
PROVIDERS: Visit Provider Nurse Practitioner Family
DX: R30.0 Dysuria (principal)
CPT/HCPCS: 81002; 81025; 87077; 87086; 87186; 87210; 87491; 87591

== ENCOUNTER 2023-04-23 18:04 | Emergency (ER) | payer OTHER, MEDICAID, SELFPAY ==
[2023-04-23 18:11] VITALS: BP 133/68; PULSE 106; RESP 18; TEMP 36.6; O2SAT 100; BMI 20.9
[2023-04-23 18:17] VITALS: O2SAT 97
[2023-04-23 18:18] VITALS: BP 138/87; PULSE 102; O2SAT 99
--- NOTE | 2023-04-23 18:25 | ED_ITS ---
HPI - General Adult General Chief complaint: Upper Respiratory Symptoms Stated complaint: throat/urinary problems x2 weeks [facility] Time Seen by Provider: 04/23/23 18:06 Source: patient Mode of arrival: Ambulatory History of Present Illness HPI narrative: 33-year-old woman with no significant medical problems presents complaining losing her voice. Started out hoarseness on the 16, on the she had almost no voice but went to work and had to talk all day long and on the , today, she notes that her throat is increasingly sure her voice is even weaker and she comes in for further evaluation. She does not note fevers. She has not had significant cough but she notes she has had some intermittent wheezing. In the past she has had a diagnosis of asthma and will occasionally use an albuterol inhaler, she does not have any and would appreciate a refill of this. She does not complain of dyspnea she notes some minor nasal congestion no significant headaches abdominal pain, vomiting, diarrhea or chest pain, she is not currently complaining of dysuria or flank pain.. Related Data Home Medications Medication Instructions Recorded Confirmed cyclobenzaprine 10 mg tablet 10 mg PO TID PRN 06/27/20 etonogestrel 68 mg subdermal subdermal 06/27/20 06/27/20 implant (Nexplanon) Previous Rx's Medication Instructions Recorded amitriptyline 25 mg tablet 25 mg PO BEDTIME #30 tabs 11/15/21 albuterol sulfate 90 mcg/actuation 2 puff inhalation Q6H PRN 04/23/23 aerosol inhaler shortness of breath or wheezing #8.5 grams Allergies Allergy/AdvReac Type Severity Reaction Status Date / Time naproxen [NAPROXEN] Allergy Severe SWELL UP Verified 11/15/21 00:20 SHORT OF BREATH, TORADOL TOLERATED IN PAST PER supervisor billposting of Systems Review of Systems Narrative: Pertinent positive and negative findings as per HPI Patient History Medical History Abnormal Pap smear of cervix (~2012) Allergies Anemia Asthma Bacterial vaginitis Chronic back pain greater than 3 months duration Eczema Encounter for routine gynecological examination (06/27/20) Heavy menstrual period Hemorrhagic ovarian cyst (~06/27/20) Irregular menstrual cycle Kidney infection Migraines Painful menstrual periods Possible exposure to STD Post traumatic stress disorder (PTSD) Restless leg syndrome Vertigo (~2006) Family History Mother Mental health problem Brother Mental health problem Brother Hypertension Mental health problem Sister Mental health problem Grandmother Mental health problem Social History Smoking Status: Current every day smoker Tobacco: How many years used: 20 quit status: considering quitting (Patient given smoking cessation handout ) second hand exposure: Yes (work) alcohol intake: current (1-2 beers every other day) substance use type: does not use Smoking Status: Current every day smoker tobacco type: vaping alcohol intake frequency: a few times a week Substance Use Type: does not use Exam Initial Vital Signs Initial Vital Signs: Vital Signs Temperature 98 F 04/23/23 18:11 Pulse Rate 106 H 04/23/23 18:11 Respiratory Rate 18 04/23/23 18:11 Blood Pressure 133/68 04/23/23 18:11 Pulse Oximetry 100 04/23/23 18:11 Oxygen Delivery Method Room Air 04/23/23 18:11 General: Healthy appearing, in no acute distress. Able to give a complete and coherent history while whispering. Well-nourished well-developed HEENT: Moist mucous membranes, normal sclera with reactive pupils, no posterior pharyngeal erythema or exudate. She is very hoarse Neck: No cervical adenopathy, supple Respiratory: Lungs are clear to auscultation, minor scattered wheeze that resolves with deep breathing. Full and symmetrical air movement Cardiac: Regular rate and rhythm no murmurs no bruits Skin: Warm and dry, no rashes Neurologic: Grossly neurologically intact with no obvious asymmetries or abnormalities Extremities: well perfused Psych: Cooperative, appropriate insight and affect Course Vital Signs Vital signs: Vital Signs - 8 hr 04/23/23 18:11 04/23/23 18:17 04/23/23 18:18 Temperature 98 F Pulse Rate 106 H 102 H Respiratory Rate 18 Blood Pressure 133/68 Pulse Oximetry 100 97 99 Oxygen Delivery Method Room Air Room Air Room Air 04/23/23 18:18 Temperature Pulse Rate Respiratory Rate Blood Pressure 138/87 Pulse Oximetry Oxygen Delivery Method Medical Decision Making MDM Narrative Medical decision making narrative: CC: Loss of voice Complicating co-morbidities: History of minor intermittent asthma Data collected from: patient, Medical records reviewed: Recent urgent Care, primary care and ER notes over the last year and a half and are reviewed Differential considered: Viral syndrome, pharyngitis bacterial, peritonsillar abscess Exam documented above, pertinent findings include: Aside from being significantly hoarse, exam is benign Discussion: 33-year-old woman with loss of voice for the past 72 hours minimal symptoms otherwise. Scattered wheeze with a history of mild intermittent asthma. No sign of significant toxicity. Reviewed signs and symptoms of la ryngitis associated with upper respiratory infection. Did recommend that she not return to work until next Tuesday and a return to work note will be given. A prescription for albuterol MDI with spacer is also given. There is no indication for additional workup, imaging or hospitalization at this time. Questions are answered and she is safe for discharge Additional Information: [facility] Apprpriate Treatment for Patients with URI [x] The patient was diagnosed with upper respiratory infection and was not prescribed or dispensed an antibiotic. [SATISFI[facility] PERFORMANCE] Discharge Plan Departure Patient Disposition: Home Clinical Impression: Upper respiratory infection, viral, Laryngitis, acute Asthma Qualifiers: Asthma severity: mild Asthma persistence: intermittent Asthma complication type: uncomplicated Qualified Code(s): J45.20 - Mild intermittent asthma, uncomplicated Instructions: DI for Viral Upper Respiratory Infection -- Adult Activity Restrictions/Additional Instructions: Thank you for coming in today Your clinical presentation and physical exam all suggest an acute virus. This will get better in 7-10 days. You likely are not going to get your voice back for a number of days and the less you try to speak the sooner you will be able increase the volume. Tylenol can be helpful in controlling the pain. Gargling with salt water can also be helpful You find that you are having increasing wheeze, you can use 2 puffs from your albuterol inhaler. Using the spacer significantly increases the amount of medicine that is actually delivered to your lungs. A prescription for this has been electronically transmitted to [facility] If you find that you are getting worse or develop any new symptoms, please feel free to return to the emergency department for further evaluation. Prescriptions: New albuterol sulfate 90 mcg/actuation HFA aerosol inhaler 2 puff inhalation Q6H PRN (Reason: shortness of breath or wheezing) Qty: 8.5 0RF Rx Instructions: please dispense with spacer and instructions on use No Action Nexplanon 68 mg implant subdermal cyclobenzaprine 10 mg tablet 10 mg PO TID PRN amitriptyline 25 mg tablet 25 mg PO BEDTIME Qty: 30 3RF Referrals: Miscellaneous,Doctor, MD [Primary Care Provider] - Stand Alone Forms: Patient Portal/API, Work Release Note
[2023-04-23 18:30] VITALS: BP 126/80; PULSE 102; O2SAT 100
[2023-04-23 19:00] VITALS: BP 125/87; PULSE 95; TEMP 36.9; O2SAT 100
[2023-04-23 19:54] LABS: Bacteria Urine Many (>30); Culture Indicated Urine Specimen Cultured; RBC Urine None Seen (0-5/HPF); Squamous Epithelial Cell Urine 1-5 /HPF (0-5/HPF); WBC Urine 5-10/HPF (0-5/HPF)
== END 2023-04-23 19:12 | disposition home or self-care (01) ==
PROVIDERS: Emergency Provider Emergency Medicine
DX: J04.0 Acute laryngitis (principal); J45.20 Mild intermittent asthma, uncomplicated; F17.290 Nicotine dependence, other tobacco product, uncomplicated
CPT/HCPCS: 81003; 81015; 81025; 87077; 87086; 87186; 99282; 99283

== ENCOUNTER 2023-10-24 21:50 | Emergency (ER) | payer OTHER, MEDICAID, SELFPAY ==
[2023-10-24 22:13] VITALS: BP 125/64; PULSE 103; RESP 16; TEMP 36.1; O2SAT 98; BMI 21.1
[2023-10-24 23:56] LABS: Appearance Urine UA CLOUDY; Bilirubin Urine UA NEGATIVE (NEGATIVE); Color Urine UA YELLOW; Glucose Urine UA TRACE g/dL (Negative); Ketones Urine UA NEGATIVE (NEGATIVE); Leukocyte Esterase Urine UA TRACE (NEGATIVE); Nitrite Urine UA POSITIVE (Negative); Occult Blood Urine UA 3+ (Negative); Protein Urine UA 3+ (Negative); Specific Gravity Urine UA >=1.030 (1.000-1.035)
[2023-10-24 23:58] LABS: pH Urine UA 5.5 (4.5-8.0)
[2023-10-25 00:04] LABS: Bacteria Urine Moderate (10-30); Culture Indicated Urine Specimen Cultured; RBC Urine 5-10/HPF (0-5/HPF); Squamous Epithelial Cell Urine 0-1 /HPF (0-5/HPF); Urine Volume 10mL (spun); WBC Urine 30-100/HPF (0-5/HPF)
--- NOTE | 2023-10-25 01:23 | ED_ITS ---
HPI - Female Genitourinary General Chief complaint: Urogenital-Female Stated complaint: Urinary pain Time Seen by Provider: 10/25/23 01:23 Source: patient Mode of arrival: Ambulatory History of Present Illness HPI Narrative: 33-year-old female with history of urinary tract infections including kidney infections, no known kidney stones, complains of 1 week duration of dysuria and frequency of urination, no fevers, some nausea, no vomiting, but now having bilateral flank discomfort as well. No injury trauma new activities. Related Data Home Medications Medication Instructions Recorded Confirmed cyclobenzaprine 10 mg tablet 10 mg PO TID PRN 06/27/20 etonogestrel 68 mg subdermal subdermal 06/27/20 06/27/20 implant (Nexplanon) Previous Rx's Medication Instructions Recorded amitriptyline 25 mg tablet 25 mg PO BEDTIME #30 tabs 11/15/21 albuterol sulfate 90 mcg/actuation 2 puff inhalation Q6H PRN 04/23/23 aerosol inhaler shortness of breath or wheezing #8.5 grams cefdinir 300 mg capsule 300 mg PO BID 10 days #20 caps 10/25/23 phenazopyridine 200 mg tablet 200 mg PO TID PRN pain #10 tabs 10/25/23 (Pyridium) Allergies Allergy/AdvReac Type Severity Reaction Status Date / Time naproxen [NAPROXEN] Allergy Severe SWELL UP Verified 10/24/23 22:13 SHORT OF BREATH, TORADOL TOLERATED IN PAST PER project manager retail of Systems Review of Systems ROS Unobtainable: All systems reviewed & are unremarkable except as noted in HPI and below Patient History Medical History Abnormal Pap smear of cervix (~2012) Allergies Anemia Asthma Bacterial vaginitis Chronic back pain greater than 3 months duration Eczema Encounter for routine gynecological examination (06/27/20) Heavy menstrual period Hemorrhagic ovarian cyst (~06/27/20) Irregular menstrual cycle Kidney infection Migraines Painful menstrual periods Possible exposure to STD Post traumatic stress disorder (PTSD) Restless leg syndrome Vertigo (~2006) Family History Mother Mental health problem Brother Mental health problem Brother Hypertension Mental health problem Sister Mental health problem Grandmother Mental health problem tobacco type: vaping alcohol intake frequency: a few times a week Substance Use Type: does not use Exam Narrative Exam Narrative: GENERAL: Well-developed patient, in mild distress. HEAD: Atraumatic. Normocephalic. EYES: Pupils equal round and reactive. Extraocular motions intact. No scleral icterus. No injection or drainage. ENT: Nose without bleeding, purulent drainage. Throat without erythema, tonsillar hypertrophy or exudate. Airway patent. NECK: Trachea midline. Non tender CARDIOVASCULAR: Regular rate and rhythm without murmurs, gallops, or rubs. RESPIRATORY: Clear to auscultation. Breath sounds equal bilaterally. No wheezes, rales, or rhonchi. GASTROINTESTINAL: Abdomen soft, non-tender, nondistended. EXTREMITIES: No edema or joint tenderness. BACK: Nontender without deformity or crepitance. Mild bilateral flank tenderness NEURO: AOx3. SKIN: No rash or erythema of visible areas Initial Vital Signs Initial Vital Signs: Vital Signs Temperature 97.0 F L 10/24/23 22:13 Pulse Rate 103 H 10/24/23 22:13 Respiratory Rate 16 10/24/23 22:13 Blood Pressure 125/64 10/24/23 22:13 Pulse Oximetry 98 10/24/23 22:13 Oxygen Delivery Method Room Air 10/24/23 22:13 Course Orders Ordered: ED Orders 10/24/23 22:17 Urinalysis and Microscopic Stat Urine Culture Stat 10/25/23 02:29 Test Urine Stat Discontinued Medications Acetaminophen (Acetaminophen 325 Mg Tablet) 650 mg PO NOW ONE Stop: 10/25/23 02:23 Last Admin: 10/25/23 02:49 Dose: 650 mg Documented By: JOSETTE Cefdinir (Cefdinir 300 Mg Capsule) 300 mg PO NOW ONE Stop: 10/25/23 02:17 Last Admin: 10/25/23 02:43 Dose: 300 mg Documented By: FLORENCE Metronidazole (Flagyl) 500 mg in 100 mls @ 100 mls/hr IV NOW ONE Stop: 10/25/23 02:27 Nitrofurantoin Macrocrystals (Nitrofurantoin Er 100 Mg Capsule) 100 mg PO NOW ONE Stop: 10/25/23 01:28 Last Admin: 10/25/23 01:33 Dose: Not Given Documented By: FLORENCE Ondansetron HCl (Ondansetron 4 Mg Odt Prepack) 1 bottle MISC DIRECTED ONE Stop: 10/25/23 02:21 Last Admin: 10/25/23 02:57 Dose: 1 bottle Documented By: JOSETTE Ondansetron HCl (Ondansetron 4 Mg Odt Prepack) 1 bottle MISC DIRECTED ONE Stop: 10/25/23 02:55 Last Admin: 10/25/23 02:58 Dose: Not Given Documented By: JOSETTE Phenazopyridine HCl (Phenazopyridine 100 Mg Tablet) 200 mg PO NOW ONE Stop: 10/25/23 02:17 Last Admin: 10/25/23 02:49 Dose: 200 mg Documented By: JOSETTE Phenazopyridine HCl (Phenazopyridine 100 Mg Tablet) 200 mg PO NOW ONE Stop: 10/25/23 02:46 Vital Signs Vital signs: Vital Signs - 8 hr 10/24/23 22:13 Temperature 97.0 F L Pulse Rate 103 H Respiratory Rate 16 Blood Pressure 125/64 Pulse Oximetry 98 Oxygen Delivery Method Room Air MDM - Female Genitourinary Lab Data Attestation: I reviewed the patient's lab results. Labs: Lab Results 10/24/23 Range/Units 22:17 Urine Color Yellow Urine Appearance Cloudy Urine pH 5.5 (4.5-8.0) Ur Specific [place] >=1.030 H (1.000-1.035) Urine Protein 3+ H (Negative) Urine Glucose (UA) Trace H (Negative) g/dL Urine Ketones Negative (NEGATIVE) Urine Occult Blood 3+ H (Negative) Urine Nitrate Positive H (Negative) Urine Bilirubin Negative (NEGATIVE) Urine Urobilinogen 2.0 H (0.2) E.U./dL Ur Leukocyte Esterase Trace H (NEGATIVE) Urine RBC 5-10/hpf H (0-5/HPF) Urine WBC 30-100/hpf H (0-5/HPF) Ur Squamous Epith Cells 0-1 /hpf (0-5/HPF) Urine Bacteria Moderate (10-30) H (None) Ur Culture Indicated? Specimen cultured Vol Urine Centrifuged 10ml (spun) Urine Test Negative (Negative) MDM Narrative Medical decision making narrative: 33-year-old female with dysuria frequency of urination for 1 week, now with flank pain. Triage without fever. Urinalysis suspicious for infection, hCG negative. Patient in waiting room prescribed nitrofurantoin antibiotic for possible cystitis. On exam however has some flank discomfort and flank pain symptoms, possible upper tract infection, prefer cephalosporin for possible pyelonephritis. We discussed imaging, we will defer for now. P.o. cefdinir dose, p.o. Pyridium. Further prescriptions antibiotic and Pyridium sent to her pharmacy. Home pack Zofran ODT to use if needed. Encouraged to drink plenty of fluids. Encouraged to recheck symptoms with her regular doctor in the 2-3 days, to check symptoms and also urine culture results. Return precautions discussed. Discharge Plan Departure Patient Disposition: Home Clinical Impression: Pyelonephritis Instructions: DI for Kidney Infection Activity Restrictions/Additional Instructions: Recent 1 week duration of painful urination, abnormal urinalysis sent for culture, now with bilateral flank area back discomfort, suspicious for kidney infection. test negative. Initial nitrofurantoin antibiotic given in case of bladder infection. However presence of back symptoms concerning for upper tract infection of the kidneys as well. We discussed imaging studies, hold for now. Oral cefdinir antibiotic given for possible kidney infection. Take Pyridium for pain control for the bladder. Take Tylenol as needed for flank discomfort. Prescription for further antibiotic cefdinir and for Pyridium sent to your pharmacy. Home pack of ondansetron dissolvable to use if control of nausea needed. Drink plenty of fluids. Recheck with your regular provider in the next 2 days or so, to review your symptoms, and also check her urine culture results. Return to this/nearest emergency department for any change worsening symptoms or any concerns prior Prescriptions: New cefdinir 300 mg capsule 300 mg PO BID 10 Days Qty: 20 0RF phenazopyridine [Pyridium] 200 mg tablet 200 mg PO TID PRN (Reason: pain) Qty: 10 0RF No Action Nexplanon 68 mg implant subdermal cyclobenzaprine 10 mg tablet 10 mg PO TID PRN amitriptyline 25 mg tablet 25 mg PO BEDTIME Qty: 30 3RF albuterol sulfate 90 mcg/actuation HFA aerosol inhaler 2 puff inhalation Q6H PRN (Reason: shortness of breath or wheezing) Qty: 8.5 0RF Rx Instructions: please dispense with spacer and instructions on use Referrals: Miscellaneous,Doctor, MD [Primary Care Provider] - Stand Alone Forms: Patient Portal/API
[2023-10-25 02:40] LABS: Pregnancy Test Urine Negative (Negative)
[2023-10-25] MEDS: CEFDINIR 300 MG CAPSULE PO (02:43)
[2023-10-25] MEDS: PHENAZOPYRIDINE 100 MG TABLET 200 MG PO (02:49)
[2023-10-25] MEDS: ACETAMINOPHEN 325 MG TABLET 650 MG PO (02:49)
[2023-10-25] MEDS: ONDANSETRON 4 MG ODT PREPACK 1 BOTTLE MISC (02:57)
== END 2023-10-25 03:00 | disposition home or self-care (01) ==
PROVIDERS: Emergency Provider Emergency Medicine
DX: N12 Tubulo-interstitial nephritis, not specified as acute or chronic (principal)
CPT/HCPCS: 81001; 81025; 87077; 87086; 87186; 99283

== ENCOUNTER → 2023-11-10 18:33 | Outpatient (CLI) | payer OTHER, MEDICAID, SELFPAY | PROVIDERS: Visit Provider Nurse Practitioner Family | DX: R30.0 Dysuria (principal) | CPT/HCPCS: 81002; 87077; 87086; 87186 ==

== ENCOUNTER → 2023-11-11 10:55 | Outpatient (CLI) | payer OTHER, MEDICAID, SELFPAY | PROVIDERS: Referring Provider Nurse Practitioner Family; Visit Provider Nurse Practitioner Family | DX: R30.0 Dysuria (principal) | CPT/HCPCS: 87210 ==

== ENCOUNTER 2024-08-27 21:37 | Emergency (ER) | payer OTHER, MEDICAID, SELFPAY ==
[2024-08-27 21:47] VITALS: BP 116/90; PULSE 103; RESP 16; TEMP 36.6; O2SAT 99; BMI 19.5
--- NOTE | 2024-08-27 23:55 | ED_ITS ---
HPI - Abdominal Pain General Chief Complaint: Urogenital-Female Stated Complaint: kidney pain Time Seen by Provider: 08/27/24 23:39 Source: patient, RN notes reviewed and old records reviewed Mode of arrival: Ambulatory Limitations: no limitations History of Present Illness HPI narrative: 34-year-old female history of tobacco use presents with bilateral flank pain. States she has had this issue on and off in the past. States sometimes she has been treated for bladder or kidney infections states they do not always find it infection. States she has been hospitalized before but sometimes there was no source found patient states this issue has been on and off for months if not longer. She states tonight has been worse than usual. She describes some subjective fevers. She states nausea no vomiting tonight. She denies any anterior abdominal pain although states sometimes the cramping comes around to the front but mostly flank pain. She states it feels like it is her kidneys. She states she has been constipated but had a bowel movement today. No black or bloody stools today. She was had some frequency and sense of urgency and dysuria. She states she has had some new discharge no new vaginal bleeding. She was sexually active, states she does not use protection she states she was not sure she was concern for STIs. She has had an STI in the past. Patient states she was allergic to naproxen but can tolerate ibuprofen and Toradol. She states she was not on any daily medications. Denies any recent surgeries. Does use tobacco, occasional alcohol, no recreational drugs. Related Data Previous Rx's Medication Instructions Recorded doxycycline hyclate 100 mg tablet 100 mg PO Q12H 14 days #28 tabs 08/28/24 metronidazole 500 mg tablet 500 mg PO BID 14 days #28 tabs 08/28/24 Allergies Allergy/AdvReac Type Severity Reaction Status Date / Time naproxen [NAPROXEN] Allergy Severe SWELL UP Verified 08/27/24 21:51 SHORT OF BREATH, TORADOL TOLERATED IN PAST PER voice and data technician of Systems Review of Systems ROS Unobtainable: All systems reviewed & are unremarkable except as noted in HPI and below Patient History Medical History Possible exposure to STD Encounter for routine gynecological examination (06/27/20) Bacterial vaginitis Kidney infection Post traumatic stress disorder (PTSD) Restless leg syndrome Migraines Anemia Eczema Asthma Allergies Vertigo (~2006) Painful menstrual periods Hemorrhagic ovarian cyst (~06/27/20) Irregular menstrual cycle Heavy menstrual period Abnormal Pap smear of cervix (~2012) Chronic back pain greater than 3 months duration Family History Mother Mental health problem Brother Mental health problem Brother Hypertension Mental health problem Sister Mental health problem Grandmother Mental health problem Social History Smoking Status: Current every day smoker Tobacco: How many years used: 20 quit status: considering quitting (Patient given smoking cessation handout ) second hand exposure: Yes (work) alcohol intake: current (1-2 beers every other day) substance use type: does not use Smoking Status: Current every day smoker tobacco type: vaping alcohol intake frequency: a few times a week Exam Narrative Exam Narrative: GENERAL: Alert and oriented x three, female in mild distress. Patient is seated upright on the bed. HEENT: Head normocephalic, atraumatic, EOMI, pupils reactive, face symmetric, moist mucous membranes NECK: Supple, full range of motion CARDIOVASCULAR: Regular rate and rhythm without murmurs, rubs or gallops. RESPIRATORY: Breath sounds equal bilaterally, no wheezes rales or rhonchi. ABDOMEN: Soft, nontender. Normoactive bowel sounds all 4 quadrants. No guarding or rebound, rigidity, no mass : Mild bilateral CVA tenderness, Female: external vaginal exam is normal, no vaginal bleeding, positive for copious, thin white discharge, no odor, positive for cervical motion tenderness, otherwise normal speculum exam, no adnexal tenderness/mass. Bimanual exam is normal, no enlarged or tender uterus. Non- gravid. EXTREMITIES: Normal range of motion, no clubbing or edema. Neurovascularly intact NEUROLOGICAL: Cranial nerves II through XII grossly intact. Moving all extremities SKIN: Warm, dry, no petechiae, no rashes or lesions. Initial Vital Signs Initial Vital Signs: Vital Signs Temperature 97.8 F 08/27/24 21:47 Pulse Rate 103 H 08/27/24 21:47 Respiratory Rate 16 08/27/24 21:47 Blood Pressure 116/90 08/27/24 21:47 Pulse Oximetry 99 08/27/24 21:47 Oxygen Delivery Method Room Air 08/27/24 21:47 Course Orders Ordered: ED Orders 08/28/24 00:16 CT abdomen pelvis w con Stat 08/28/24 00:18 Urine Microscopic Stat 08/28/24 00:25 CBC Auto Diff [Complete Blood Count AUTO DIFF] Stat CMP [Comprehensive Metabolic Panel] Stat Lipase Stat 08/28/24 02:02 Chlamydia/Gonoc/Myco Genital Stat Genital Culture Stat Wet Prep Tric BV [place] Stat Discontinued Medications Doxycycline Hyclate (Doxycycline Hyclate 100 Mg Tablet) 100 mg PO NOW ONE Stop: 08/28/24 02:10 Last Admin: 08/28/24 02:18 Dose: 100 mg Documented By: ELIEL Sodium Chloride (Normal Saline 0.9%) 1,000 mls @ 1,000 mls/hr IV BOLUS ONE Stop: 08/28/24 01:15 Last Infusion: 08/28/24 01:57 Dose: Infused Documented By: Admin: 08/28/24 00:27 Dose: 1,000 mls/hr Documented By: MARCUS Ceftriaxone Sodium 1,000 mg/ (Sodium Chloride) 100 mls @ 200 mls/hr IV NOW ONE Stop: 08/28/24 02:10 Last Infusion: 08/28/24 03:00 Dose: Infused Documented By: Admin: 08/28/24 02:18 Dose: 200 mls/hr Documented By: ELIEL Ketorolac Tromethamine (Ketorolac 30 Mg/Ml Vial) 15 mg IV NOW ONE Stop: 08/28/24 00:17 Last Admin: 08/28/24 00:26 Dose: 15 mg Documented By: MARCUS Metronidazole (Metronidazole 500 Mg Tablet) 500 mg PO NOW ONE Stop: 08/28/24 02:23 Last Admin: 08/28/24 02:28 Dose: 500 mg Documented By: ELIEL Vital Signs Vital signs: Vital Signs - 8 hr 08/27/24 21:47 08/28/24 00:54 08/28/24 00:55 Temperature 97.8 F Pulse Rate 103 H 89 Respiratory Rate 16 Blood Pressure 116/90 117/72 Pulse Oximetry 99 99 Oxygen Delivery Method Room Air 08/28/24 00:55 08/28/24 01:00 08/28/24 01:00 Temperature Pulse Rate 86 79 Respiratory Rate 17 Blood Pressure 109/70 Pulse Oximetry 100 100 Oxygen Delivery Method Room Air Room Air 08/28/24 01:30 08/28/24 01:30 08/28/24 02:57 Temperature Pulse Rate 82 89 Respiratory Rate 17 Blood Pressure 132/86 Pulse Oximetry 100 100 Oxygen Delivery Method Room Air 08/28/24 02:58 08/28/24 02:58 Temperature Pulse Rate 89 Respiratory Rate 16 Blood Pressure 117/57 L Pulse Oximetry 100 Oxygen Delivery Method Room Air MDM - Abdominal Pain Lab Data 08/28/24 00:25 08/28/24 00:25 Labs: Lab Results 08/27/24 08/28/24 Range/Units 22:52 00:25 WBC 6.6 (4.5-11.0) X10^3/uL RBC 4.48 (4.0-5.2) X10^6/uL Hgb 13.3 (12.0-16.0) g/dL Hct 39.7 (36-46) % MCV 88.7 (80-100) fL MCH 29.8 (26-34) PG MCHC 33.6 (30-36) % RDW 12.7 (11.6-14.8) % Plt Count 263 (150-400) X10^3/uL Neut % (Auto) 59.5 (50-75) % Lymph % (Auto) 29.3 (25-40) % Falls % (Auto) 7.8 (3-14) % Eos % (Auto) 2.6 (2-4) % Baso % (Auto) 0.8 (0-2) % Neut # (Auto) 3900 (8397-0867) /uL Lymph # (Auto) 1900 (7646-2953) /uL Falls # (Auto) 500 (0-900) /uL Eos # (Auto) 200 (0-450) /uL Baso # (Auto) 100 (0-100) /uL Sodium 137 (137-145) mmol/L Potassium 4.5 (3.4-5.1) mmol/L Chloride 106 (98-107) mmol/L Carbon Dioxide 23 (22-32) mmol/L BUN 16 (7-17) mg/dL Creatinine 0.79 (0.52-1.04) mg/dL Estimated GFR > 60 (>60) mL/min BUN/Creatinine Ratio 20.3 (6-22) Glucose 96 (70-100) mg/dL Calcium 9.2 (8.4-10.2) mg/dL Total Bilirubin 0.5 (0.2-1.3) mg/dL AST 39 H (14-36) IU/L ALT 26 (<35) IU/L Alkaline Phosphatase 49 (38-126) U/L Total Protein 7.6 (6.3-8.2) g/dL Albumin 4.4 (3.5-5.0) g/dL Globulin 3.2 (1.7-4.1) g/dL Albumin/Globulin Ratio 1.4 (1.0-2.8) Lipase 167 (23-300) U/L Urine RBC None seen (0-5/HPF) Urine WBC None seen (0-5/HPF) Ur Squamous Epith Cells 0-1 /hpf (0-5/HPF) Urine Bacteria None seen (None) Ur Culture Indicated? Cult not indicated Vol Urine Centrifuged 10ml (spun) Point of care testing: Point of Care Testing Test Results Negative Urine Dip Bedside Urine Glucose Negative Bedside Urine Bilirubin - Negative Bedside Urine Ketone - Negative Urine Specific [place] 1.020 Bedside Urine Occult Blood - Negative Bedside Urine pH 6.0 Bedside Urine Protein - Negative Bedside Urine Urobilinogen - Negative Bedside Urine Nitrite - Negative Bedside Urine Leukocytes - Negative Esterase MDM Narrative Medical decision making narrative: Point of care urine is negative. is negative. Micro shows 1 squamous no reds no whites no bacteria. wet mount negative wbc, non clue cells, yeast or trichomonas. Lab called unable to perform gram stain due to technical issue. Will hold off on reswab. Genital and going to/chlamydia cultures pending. Labs show normal CBC, normal electrolytes BUN creatinine, AST is [address] normal [address] abdomen pelvis shows no acute change, does show hepatic steatosis. Patient received fluids and Toradol. Patient has got nausea but states the medication gives her headaches and defers any. 34-year-old female with complaint of bilateral flank pain has had pyelonephritis in the past initial urine dip and is negative patient notes this feels very much like when she was had pyelonephritis she was sexually active she was not sure she was concern for STIs we did discuss pelvic exam versus self swab. To amenable to obtaining labs and imaging and she will decide on pelvic. Labs, CT abdomen pelvis in urine did not show any signs of infection. Discussed obtaining pelvic versus self swab. Patient was like to proceed with pelvic exam and cultures. She notes not really new discharge but sort of a change in the consistency. On exam patient does have thin white discharge as well as cervical motion tenderness suspect PID wet mount, genital culture and gonorrhea/chlamydia swab were sent. Discussed with the patient we will cover with broad-spectrum antibiotics. Discharge Plan Departure Patient Disposition: Home Clinical Impression: Bilateral flank pain, Acute pelvic inflammatory disease (PID) Instructions: DI for Pelvic Inflammatory Disease (PID) Activity Restrictions/Additional Instructions: Your workup today showed infection in the cervix/uterus consistent with pelvic inflammatory disease. You did have testing for gonorrhea/chlamydia as well as a genital culture sent these take 1-2 weeks to result. You have been treated with antibiotics for these but please follow up your results if they are positive you need to notify your partners so they can also be treated. No sexual activity until antibiotics are completed. Take antibiotics until completed. Flagyl/metronidazole we will make you throw up if you drink alcohol with it so avoid or abstain from alcohol while taking this antibiotic. Doxycycline can make you more sun sensitive so wear protective clothing or your sunscreen while taking it. Prescription sent to [facility]. Please return for fevers, rapidly worsening abdominal back or flank pain, persistent vomiting, lightheadedness or passing out, difficulty with urination or other new or concerning changes. Prescriptions: New doxycycline hyclate 100 mg tablet 100 mg PO Q12H 14 Days Qty: 28 0RF metronidazole 500 mg tablet 500 mg PO BID 14 Days Qty: 28 0RF Referrals: Miscellaneous,DoctorMD [Primary Care Provider] - Stand Alone Forms: Patient Portal/API/Survey
--- NOTE | 2024-08-28 00:16 | DI.CT.S_ITS ---
PROCEDURE: CT ABDOMEN PELVIS W CON INDICATIONS: b/l flank pain, intermittent hx of prior TECHNIQUE: After the administration of intravenous contrast, axial sections acquired from the lung bases to the pubic symphysis. Coronal and sagittal reformats were performed. For radiation dose reduction, the following was used: automated exposure control, adjustment of mA and/or kV according to patient size. COMPARISON: None. FINDINGS: Image quality: Diagnostic. Lower Chest: No significant findings. ABDOMEN: Liver: No solid mass. There is diffuse hypoattenuation of the liver parenchyma relative to the spleen compatible with hepatic steatosis. Gallbladder: No radiopaque gallstones or wall thickening. Biliary ducts: No biliary dilation. Pancreas: No ductal dilation. Spleen: Size is within normal limits. Adrenal Glands: No adrenal nodules. Kidneys and Ureters: No hydronephrosis. No solid mass. No complex renal cystic lesion which requires follow up. Stomach and Bowel: Normal colonic caliber, without significant wall thickening. No evidence for small bowel obstruction or associated inflammatory changes. The appendix is not definitively visualized. However, no secondary findings of acute inflammation are noted in the right lower quadrant. Peritoneum: No abnormal intraperitoneal fluid. No free air. Ventral Wall: No significant ventral hernia. Abdominal Nodes: No retroperitoneal or mesenteric adenopathy by size criteria. Vessels: Aorta and inferior vena cava are normal in size. PELVIS: Pelvic Organs: Unremarkable. Bladder: No bladder wall thickening, accounting for underdistention. Pelvic Nodes: No enlarged lymph nodes. Miscellaneous: No inguinal hernias are seen. Bones: No aggressive osseous abnormality. Visualized osseous structures appear intact without acute fracture or focal destructive lesion. No acute compression fractures of the imaged spine. IMPRESSION: CT abdomen and pelvis without acute abnormalities to explain patient's symptoms. Hepatic steatosis. Dictated by: Deangelo Orozco M.D. on 08/28/2024 at 1:39 Approved by: Deangelo Orozco M.D. on 08/28/2024 at 1:43
[2024-08-28] MEDS: KETOROLAC 30 MG/ML VIAL 15 MG IV (00:26)
[2024-08-28] MEDS: SODIUM CHLORIDE 0.9% 1,000 ML 1000 ML IV (00:27)
[2024-08-28 00:54] VITALS: PULSE 89; O2SAT 99
[2024-08-28 00:55] VITALS: BP 117/72; PULSE 86; RESP 17; O2SAT 100
[2024-08-28 00:55] LABS: Add Manual Diff / Slide Review NO; Basophils Absolute Auto 100 /uL (0-100); Basophils Percent Auto 0.8 % (0-2); Eosinophils Absolute Auto 200 /uL (0-450); Eosinophils Percent Auto 2.6 % (2-4); Hematocrit 39.7 % (36-46); Hemoglobin 13.3 g/dL (12.0-16.0); Lymphocytes Absolute Auto 1900 /uL (1100-4500); Lymphocytes Percent Auto 29.3 % (25-40); Mean Corpuscular HGB Conc 33.6 % (30-36); Mean Corpuscular Hemoglobin 29.8 PG (26-34); Mean Corpuscular Volume 88.7 fL (80-100); Monocytes Absolute Auto 500 /uL (0-900); Monocytes Percent Auto 7.8 % (3-14); Neutrophils Absolute Auto 3900 /uL (1500-7000); Neutrophils Percent Auto 59.5 % (50-75); Platelet Count 263 X10^3/uL (150-400); Red Blood Cell Count 4.48 X10^6/uL (4.0-5.2); Red Cell Distribution Width 12.7 % (11.6-14.8); White Blood Cell Count 6.6 X10^3/uL (4.5-11.0)
[2024-08-28 01:00] VITALS: BP 109/70; PULSE 79; O2SAT 100
[2024-08-28 01:09] LABS: Alanine Aminotransferase 26 IU/L (<35); Albumin 4.4 g/dL (3.5-5.0); Albumin Globulin Ratio 1.4 (1.0-2.8); Alkaline Phosphatase 49 U/L (38-126); Aspartate Aminotransferase 39 IU/L (14-36); BUN Creatinine Ratio 20.3 (6-22); Bilirubin Total 0.5 mg/dL (0.2-1.3); Blood Urea Nitrogen 16 mg/dL (7-17); Calcium 9.2 mg/dL (8.4-10.2); Carbon Dioxide 23 mmol/L (22-32); Chloride 106 mmol/L (98-107); Estimated Glomerular Filt Rate > 60 mL/min (>60); Globulin 3.2 g/dL (1.7-4.1); Glucose 96 mg/dL (70-100); Lipase 167 U/L (23-300); Potassium 4.5 mmol/L (3.4-5.1); Sodium 137 mmol/L (137-145); Total Protein 7.6 g/dL (6.3-8.2)
[2024-08-28 01:12] LABS: Bacteria Urine None Seen; Culture Indicated Urine Cult Not Indicated; RBC Urine None Seen (0-5/HPF); Squamous Epithelial Cell Urine 0-1 /HPF (0-5/HPF); Urine Volume 10mL (spun); WBC Urine None Seen (0-5/HPF)
[2024-08-28 01:27] LABS: HEMOLYSIS 63 (0-50)
[2024-08-28 01:30] VITALS: BP 132/86; PULSE 82; RESP 17; O2SAT 100
[2024-08-28] MEDS: DOXYCYCLINE HYCLATE 100 MG TABLET PO (02:18)
[2024-08-28] MEDS: cefTRIAXone 1,000 MG in SODIUM CHLORIDE 0.9% 100 ML 200 MG IV (02:18)
[2024-08-28] MEDS: metroNIDAZOLE 500 MG TABLET PO (02:28)
[2024-08-28 02:57] VITALS: PULSE 89; O2SAT 100
[2024-08-28 02:58] VITALS: BP 117/57; PULSE 89; RESP 16; O2SAT 100
[2024-08-31 18:07] LABS: Chlamydia trachomatis Negative (Negative); Mycoplasma genitalium Positive (Negative); Neisseria gonorrhoeae Negative (Negative)
--- NOTE | 2024-09-07 13:44 | PC.NURSE ---
Pt called stating that insurance was requiring preauthorization. Dr. Cook, writing doctor, is on this evening. Will discuss w/ her. Pt will call back @ 1930.
== END 2024-08-28 03:02 | disposition home or self-care (01) ==
PROVIDERS: Emergency Provider Emergency Medicine
DX: N73.0 Acute parametritis and pelvic cellulitis (principal); R10.9 Unspecified abdominal pain
CPT/HCPCS: 36415; 74177; 80053; 81003; 81015; 81025; 83690; 85025; 87070; 87077; 87186; 87205; 87210; 87491; 87563; 87591; 96361; 96365; 96375; 99284; J0696; J1885; Q9967

== ENCOUNTER 2024-12-23 13:47 | Emergency (ER) | payer OTHER, MEDICAID, SELFPAY ==
[2024-12-23 14:03] VITALS: BP 113/90; PULSE 105; RESP 14; TEMP 36.9; O2SAT 99; BMI 20.3
--- NOTE | 2024-12-23 14:44 | ED_ITS ---
HPI - Wound/Laceration General Chief Complaint: Wound/Laceration Stated Complaint: injury left hand Time Seen by Provider: 12/23/24 14:16 Source: patient Mode of arrival: Ambulatory History of Present Illness HPI narrative: Ms. Lopez is a very pleasant 34-year-old female who presents to the emergency department with her mother for a laceration to her lateral left hand that occurred prior to arrival. Patient's hand was cut on a broken ceramic mug. She now has a linear 4 cm laceration on the lateral aspect of the left hand. Bleeding is controlled with direct pressure. She still has full range of motion of the left hand and sensation intact distal to the wound. No blood thinner use. No diabetes. No allergies to lidocaine. She is unsure of her last Tdap. Related Data Allergies Allergy/AdvReac Type Severity Reaction Status Date / Time naproxen (NAPROXEN) Allergy Severe SWELL UP Verified 08/27/24 21:51 SHORT OF BREATH, TORADOL TOLERATED IN PAST PER accounting manager controller of Systems Review of Systems ROS Unobtainable: All systems reviewed & are unremarkable except as noted in HPI and below Patient History Medical History Possible exposure to STD Encounter for routine gynecological examination (06/27/20) Bacterial vaginitis Kidney infection Post traumatic stress disorder (PTSD) Restless leg syndrome Migraines Anemia Eczema Asthma Allergies Vertigo (~2006) Painful menstrual periods Hemorrhagic ovarian cyst (~06/27/20) Irregular menstrual cycle Heavy menstrual period Abnormal Pap smear of cervix (~2012) Chronic back pain greater than 3 months duration Family History Mother Mental health problem Brother Mental health problem Brother Hypertension Mental health problem Sister Mental health problem Grandmother Mental health problem Social History Tobacco: How many years used: 20 quit status: considering quitting (Patient given smoking cessation handout ) second hand exposure: Yes (work) alcohol intake: current (1-2 beers every other day) substance use type: does not use tobacco type: vaping alcohol intake frequency: a few times a week Exam Narrative Exam Narrative: GENERAL: 34 year old patient appears stated age. Well-developed patient, in no acute distress. HEAD: Atraumatic. Normocephalic. EYES: No scleral icterus. No injection or drainage. NECK: Trachea midline. Cervical ROM intact. CARDIOVASCULAR: Regular rate RESPIRATORY: ?Nonlabored respirations. ?Speaking in clear, full sentences. ? EXTREMITIES: On the lateral aspect of the left hand there is a 4 cm linear superficial laceration, bleeding controlled. Full range of motion of left hand is intact, patient is able to flex and extend the left digit. Sensation intact to light touch distal to the wound. Brisk capillary refill in the 5th digit. 1 cm linear superficial abrasion on the dorsal aspect of the right 5th finger. NEURO: AOx3. ?Clear speech. ?Moves all 4 extremities appropriately. SKIN: Left hand laceration described above. Remainder of skin is warm, dry, no rashes. Initial Vital Signs Initial Vital Signs: Vital Signs Temperature 98.5 F 12/23/24 14:03 Pulse Rate 105 H 12/23/24 14:03 Respiratory Rate 14 12/23/24 14:03 Blood Pressure 113/90 12/23/24 14:03 Pulse Oximetry 99 12/23/24 14:03 Oxygen Delivery Method Room Air 12/23/24 14:03 Procedures Laceration Repair Laceration 1: Site: hand Side (If applicable): left Size (cm): 4 Description: linear Depth: simple, single layer Pre-repair: wound explored, irrigated extensively (Cleansed with Betadine) and deep structures intact Skin layer closed with: dermabond Course Orders Ordered: Discontinued Medications Bacitracin (Bacitracin Oint 0.9 Gm Pckt) 1 applic TOP NOW ONE Stop: 12/23/24 14:52 Last Admin: 12/23/24 15:57 Dose: 1 applic Diphtheria/Tetanus/Acell Pertussis (Tet,Diph,Pertuss(Acell),Vac/Pf 0.5 Ml Syringe) 0.5 ml IM .ONCE ONE Stop: 12/23/24 14:52 Last Admin: 12/23/24 15:57 Dose: 0.5 ml Vital Signs Vital signs: Vital Signs - 8 hr 12/23/24 14:03 12/23/24 16:04 Temperature 98.5 F Pulse Rate 105 H 97 H Respiratory Rate 14 16 Blood Pressure 113/90 142/71 H Pulse Oximetry 99 100 Oxygen Delivery Method Room Air Room Air MDM - Wound/Laceration Medical Records Attestation: I reviewed the patient's medical records. [facility] Narrative Medical decision making narrative: 34-year-old female who presents to the emergency department with her mother for a laceration to her lateral left hand that occurred prior to arrival. Differential diagnosis includes but is not limited to laceration, abrasion, foreign body, etc. On exam patient is in no acute distress, nontoxic appearing, vital signs appropriate. She has a linear laceration on the lateral aspect of her left hand. Bleeding controlled with direct pressure. Tdap was updated in the ED. Wound was soaked in diluted Betadine, irrigated, cleansed. The wound was then closed using Dermabond and an Kaz wrap and nonadherent dressing applied for support. Bacitracin and a Band-Aid was applied to her small abrasion on her right pinky finger. Discussed proper wound care, signs and symptoms of i nfection and reasons to return to the ED. Patient and her mom verbalized understanding of all information agreeable with the plan. She is stable for discharge home. Discharge Plan Departure Patient Disposition: Home Clinical Impression: Laceration of hand, left Qualifiers: Encounter type: initial encounter Foreign body presence: without foreign body Qualified Code(s): S61.412A - Laceration without foreign body of left hand, initial encounter Instructions: DI for Laceration Repair-Skin Glue Activity Restrictions/Additional Instructions: Dear John, Thank you for coming to the emergency department.Today you had a laceration to your left hand. The wound has been closed using skin glue. Do not pick or peel this off, it will come off on its own, you can use ointment to help it, off once it is only partially attached. Please keep the dressing on your wound clean, dry, and intact for the next 24 hours. After this time, you may remove the dressing and gently clean the wound with soap and water, then pat dry. Keep the wound clean and covered. Avoid soaking the wound in any water such as a bath, pool, or the ocean. If you develop any signs of wound infection such as increased redness, pus drainage, streaking redness, or fevers, please return to the ER immediately for evaluation. Once the wound has healed, apply sunscreen daily to reduce the appearance of scars. We updated your tetanus shot today. Please follow up with your primary care doctor within the next 2-3 days for ER follow-up. (If you do not have a PCP you can call [phone]. ?to schedule an appointment with an [facility] Primary Care Provider) IF YOU DEVELOP ANY NEW OR WORSENING SYMPTOMS, RETURN TO THE ER! Please read the attached instructions, they highlight more specific treatments and interventions for you at home. Thank you for letting me participate in your care, Tamar Mae PA-C Referrals: Miscellaneous,Doctor, [Primary Care Provider, Medical] Stand Alone Forms: Patient Portal/API
[2024-12-23] MEDS: TET,DIPH,PERTUSS(ACELL),VAC/PF 0.5 ML SYRINGE IM (15:57)
[2024-12-23] MEDS: BACITRACIN OINT 0.9 GM PCKT 1 APPLIC TOP (15:57)
[2024-12-23 16:04] VITALS: BP 142/71; PULSE 97; RESP 16; O2SAT 100
== END 2024-12-23 16:05 | disposition home or self-care (01) ==
PROVIDERS: Emergency Provider Physician Assistant
DX: S61.412A Laceration without foreign body of left hand, initial encounter (principal); W25.XXXA Contact with sharp glass, initial encounter; Z23 Encounter for immunization
CPT/HCPCS: 12002; 90471; 99283; 90715